=== PATIENT | female | born 1980 | race Caucasian/White ===

== ENCOUNTER → 2017-12-24 08:06 | Outpatient (CLI) | payer OTHER, SELFPAY ==
[2017-12-24 09:43] LABS: AST(SGOT) 28 U/L (15-37); Alanine Aminotransfer ALT/SGPT 47 U/L (13-56); Albumin, Serum 3.6 g/dL (3.2-5.0); Alkaline Phosphatase 51 U/L (45-117); Bilirubin, Direct 0.08 mg/dL (0.00-0.30); Cholesterol 252 mg/dL (200); Globulin 3.8 g/dL (2.2-4.2); High Density Lipoprotein 37 mg/dL; Protein, Total 7.4 g/dL (6.4-8.2); Triglycerides 270 mg/dL; Very Low Density Lipoprotein 54 mg/dL (5-40)
== END ==
PROVIDERS: Family Provider Family Medicine; Visit Provider Internal Medicine Cardiovascular Disease
DX: E78.5 Hyperlipidemia, unspecified (principal); I77.810 Thoracic aortic ectasia
CPT/HCPCS: 36415; 80061; 80076

== ENCOUNTER → 2018-01-07 13:39 | Outpatient (CLI) | payer OTHER, SELFPAY ==
--- NOTE | 2018-01-07 13:39 | ECHOD_ITS ---
Reason For Study: Preop, Dilated Ao Root, AI Procedure This was a 2D Doppler, Color Flow transthoracic echocardiogram. Exam performed in department. Left Ventricle Normal size and thickness. The estimated ejection fraction is 65 %. Normal diastology for age. No regional wall motion abnormalities noted. Right Ventricle Normal size and thickness. Normal systolic function. Atria Normal left atrium. Normal right atrium. Normal atrial septum. Mitral Valve The mitral valve is structurally normal. No prolapse or stenosis seen. Tricuspid Valve Normal tricuspid valve. Unable to estimate RV systolic pressure/pulmonary artery pressure due to technically difficult study. Aortic Valve Trisinus/trileaflet aortic valve. Mild diffuse aortic valve thickening. Trivial aortic valve insufficiency. Pulmonic Valve The pulmonic valve is not well visualized. Great Vessels Mildly dilated aortic root. Normal arch. Normal inferior vena cava. Inferior vena cava collapse with sniff. Pericardium/Pleural No pericardial effusion. MMode/2D Measurements & Calculations LVIDd: 4.9 cm IVSd: 1.1 cm Ao root diam: 4.3 cm LVIDs: 3.0 cm LVPWd: 0.89 cm LA dimension: 3.4 cm RVDd: 3.2 cm FS: 38.4 % LAV(MOD-bp): 36.8 ml LA A4 area: 13.0 cm2 RA A4 area: 12.0 cm2 LAV(MOD-bp) Indexed: 18.8 ml/m2 LAV(MOD-sp2): 40.5 ml LAV(MOD-sp4): 33.3 ml Doppler Measurements & Calculations MV E max jhony: 71.7 cm/sec Lat Peak E' Jhony: 8.9 cm/sec Med Peak E' Jhony: 6.3 cm/sec MV A max jhony: 74.1 cm/sec E/E' lat: 8.0 E/E' med: 11.4 MV E/A: 0.97 Ao V2 max: 174.5 cm/sec AI max jhony: 401.6 cm/sec LV V1 max: 125.3 cm/sec Ao max P.2 mmHg AI max P.5 mmHg LV V1 max P.3 mmHg Ao V2 mean: 132.9 cm/sec AI dec slope: 204.1 cm/sec2 Ao mean P.7 mmHg AI P1/2t: 576.3 msec Ao V2 VTI: 34.0 cm PA V2 max: 104.1 cm/sec Interpretation Summary The estimated ejection fraction is 65 %. Normal diastology for age. Unable to estimate RV systolic pressure/pulmonary artery pressure due to technically difficult study. Trivial aortic valve insufficiency. Mildly dilated aortic root. There is no comparison study available. Ordering Physician: Riley Galicia Referring Physician: Kary Toney Performed By: Gladys Neal RDCS, RVT
--- NOTE | 2018-01-07 13:39 | CT_ITS ---
STUDY: CT CHEST WITH CONTRAST REASON FOR EXAM: Female, 37 years old. Thoracic aortic aneurysm RADIATION DOSAGE (If Supplied By Facility): CTDIvol = ( 14.1 ) mGy, DLP = ( 610.98 ) mGycm TECHNIQUE: Transaxial imaging was performed following intravenous administration of 100 ml of Isovue 300 contrast material. Coronal and sagittal reformatted images were created. Individualized dose optimization techniques were used for this CT. COMPARISON: None FINDINGS: There are no pulmonary infiltrates or pleural effusions. There is no evidence of pulmonary embolus. There is no pneumothorax. The heart and pericardium are within normal limits. There is no thoracic lymphadenopathy. There is a 4.3 x 4.2 cm aneurysm of the [place] ascending aorta. The aortic arch and descending thoracic aorta are normal in caliber. There is no evidence of thoracic aortic dissection. Images through the upper abdomen demonstrate fatty infiltration of the liver. There are no destructive osseous lesions. CT/Chest WITH Contrast IMPRESSION: 4.3 x 4.2 cm aneurysm of the [place]ingo ascending aorta. Normal caliber aortic arch and descending aorta. No evidence of thoracic aortic dissection. No evidence of pulmonary embolus. Clear lungs. Fatty liver. Electronically Signed: Kenyon Marvin, at 16:05 EDT Tel , Service support ,
== END ==
LOC: CVS 13:39
PROVIDERS: Family Provider Family Medicine; Visit Provider Internal Medicine Cardiovascular Disease
DX: I10 Essential (primary) hypertension (principal); E78.5 Hyperlipidemia, unspecified; I35.1 Nonrheumatic aortic (valve) insufficiency; I77.810 Thoracic aortic ectasia
CPT/HCPCS: 71260; 93306; Q9967

== ENCOUNTER → 2018-03-17 15:56 | Outpatient (CLI) | payer OTHER, SELFPAY ==
[2018-03-17 17:22] LABS: hCG Titer Quant., Serum < 1 mIU/mL (<9 non-preg)
[2018-03-18 08:34] LABS: Progesterone Level 0.52 ng/mL (See Comment)
== END ==
PROVIDERS: Visit Provider Obstetrics & Gynecology
DX: Z30.430 Encounter for insertion of intrauterine contraceptive device (principal)
CPT/HCPCS: 36415; 84144; 84702

== ENCOUNTER → 2018-03-21 16:50 | Outpatient (CLI) | payer OTHER, SELFPAY ==
--- NOTE | 2018-03-21 | CER_PTH ---
PATIENT: PETE HUERTA LOC: [facility] U#:[id number] AGE/SX: 45/F ROOM: RE03/21/[address]: Dr. Enoc Rebolledo MD : 1980 BED: DIS: SPEC #: [id number] RECD: 03/22/18 08:04 STATUS: JENNY CRISTIANO #: [id number] RAO: 03/21/18 00:[address]: Enoc Rebolledo DEPT: SURGICAL PATHOLOGY RECD BY: Tristan Zendejas ENTERED: 03/22/18 08:04 SP TYPE: CERV OTHR DR: Kary Toney DO Tissues: Uterine cervix, NOS Procedures: Surgery Specimen Level IV HEADER OPERATION: Removal of cervical polyp PRE-OP DIAGNOSIS: Cervical polyp TISSUE SUBMITTED: Cervical polyp MICROSCOPIC DIAGNOSIS Cervical polyp, polypectomy: Benign cervical polyp, mildly inflamed. AM:lazaro 03/24/18 MICROSCOPIC DESCRIPTION Slides are reviewed. GROSS DESCRIPTION Received in fixative is one container labeled with the patient's name and designated polyp. The specimen consists of a polypoid fragment of pink-coleman soft tissue measuring 2.7 x 1 x 0.3 cm. The specimen has adherent blood clot measuring 1 x 0.2 x 0.1 cm. The specimen is totally submitted in one cassette. / AM:lazaro 03/22/18 TC:1 CPT: 10620
[2018-03-21 18:37] LABS: Chlamydia Trachomatis by PCR Negative (Negative); Neisserai gonorrhoeae by PCR Negative (Negative); Probe Check PASS; Sample Adequacy Control PASS; Specimen Processing Control PASS
== END ==
PROVIDERS: Family Provider Family Medicine; PCP Family Medicine; Visit Provider Obstetrics & Gynecology
DX: N84.1 Polyp of cervix uteri (principal)
CPT/HCPCS: 87491; 87591; 88305

== ENCOUNTER → 2018-04-20 17:24 | Outpatient (CLI) | payer OTHER, SELFPAY ==
[2018-04-25 13:41] LABS: HPV Reflexed? NOT INDICATED
== END ==
PROVIDERS: Family Provider Family Medicine; PCP Family Medicine; Visit Provider Obstetrics & Gynecology
DX: Z12.4 Encounter for screening for malignant neoplasm of cervix (principal)
CPT/HCPCS: 88175; G0145

== ENCOUNTER → 2018-04-22 07:03 | Outpatient (CLI) | payer OTHER, SELFPAY ==
[2018-04-22 09:13] LABS: AST(SGOT) 20 U/L (15-37); Alanine Aminotransfer ALT/SGPT 32 U/L (13-56); Albumin, Serum 3.6 g/dL (3.2-5.0); Alkaline Phosphatase 44 U/L (45-117); Cholesterol 117 mg/dL (200); Globulin 3.8 g/dL (2.2-4.2); High Density Lipoprotein 36 mg/dL; Protein, Total 7.4 g/dL (6.4-8.2); Triglycerides 191 mg/dL; Very Low Density Lipoprotein 38 mg/dL (5-40)
== END ==
PROVIDERS: Family Provider Family Medicine; PCP Family Medicine; Visit Provider Nurse Practitioner Family
DX: E78.5 Hyperlipidemia, unspecified (principal)
CPT/HCPCS: 36415; 80061; 80076

== ENCOUNTER → 2019-01-09 15:55 | Outpatient (CLI) | payer BC, SELFPAY ==
[2018-12-29 15:59] VITALS: BMI 39.2
--- NOTE | 2019-01-09 15:59 | CT_ITS ---
STUDY: CTA CHEST REASON FOR EXAM: Female, 38 years old. History of dilated aortic root RADIATION DOSAGE (If Supplied By Facility): CTDIvol = ( 22.03 ) mGy, DLP = ( 594.52 ) mGycm TECHNIQUE: The examination was performed with the intravenous administration of 100 IV Isovue 370. Post-processing of the angiographic images was performed, with multiplanar reformation and 3D reconstruction. Individualized dose optimization techniques were used for this CT. COMPARISON: Previous CT chest of 01/07/2018 FINDINGS: Normal enhancement of the main pulmonary artery and right and left pulmonary arteries. Normal enhancement of the bilateral peripheral pulmonary arteries. There is no demonstrated pulmonary embolism. The thoracic aorta at the level of the aortic root measures 4.6 cm in diameter. The mid ascending thoracic aorta measures 3.8 cm. The ascending thoracic aorta proximal to the arch measures 4.0 cm. The thoracic aorta at the level of the proximal arch measures 3.7 cm in diameter. The mid thoracic aortic arch measures 2.5 cm in diameter. The descending thoracic aorta is normal in caliber and contour. There is no demonstrated aortic dissection. Normal heart and pericardium. Normal mediastinum. Normal hilar regions. Normal visualized trachea and bronchi. The lungs are well expanded. Normal pulmonary parenchyma. There are several pleural-based nodules of the posterior right lower lobe measuring up to 4 mm. These are new in the interval. Normal chest wall structures. There is mild diffuse endplate spondylosis of the visualized thoracolumbar spine. Normal visualized upper abdomen. CT/CTA Chest W/WO Contrast IMPRESSION: Normal CTA chest examination, without a demonstrated pulmonary embolism or arterial dissection. The ascending thoracic aorta is ectatic. The thoracic aorta at the level of the aortic root measures 4.6 cm in diameter. There are several pleural-based nodules in the posterior right lower lobe measuring up to 4 mm. These are new in the interval. Appropriate follow-up using Fleischner Society criteria is recommended. Mild diffuse endplate spondylosis of the visualized thoracolumbar spine. Electronically Signed: Ky Osuna MD at 19:41 EDT , Service support ,
== END ==
PROVIDERS: Family Provider Family Medicine; PCP Family Medicine; Referring Provider Internal Medicine Cardiovascular Disease; Visit Provider Internal Medicine Cardiovascular Disease
DX: I77.810 Thoracic aortic ectasia (principal); I35.1 Nonrheumatic aortic (valve) insufficiency; I10 Essential (primary) hypertension
CPT/HCPCS: 71275

== ENCOUNTER → 2019-01-13 08:16 | Outpatient (CLI) | payer BC, SELFPAY ==
[2018-12-29 15:59] VITALS: BMI 39.2
--- NOTE | 2019-01-13 08:22 | ECHOCS_ITS ---
Version 2 Reason For Study: Murmur Procedure This was a 2D Doppler, Color Flow transthoracic echocardiogram. Contrast injection was performed. Best images obtained with patient Supine. Exam performed in department. Left Ventricle Normal size and thickness. The estimated ejection fraction is 65 %. Normal diastology for age. No regional wall motion abnormalities noted. Right Ventricle Normal size and thickness. Normal systolic function. Atria Normal left atrium. Normal right atrium. Normal atrial septum. Mitral Valve The mitral valve is structurally normal. No prolapse or stenosis seen. Tricuspid Valve Normal tricuspid valve. Unable to estimate RV systolic pressure due to inadequate jet, pulmonary artery pressure probably normal. Aortic Valve Trisinus/trileaflet aortic valve. Mild diffuse aortic valve thickening. Mild (1+) aortic valve insufficiency. Pulmonic Valve Normal pulmonic valve. Great Vessels Moderately dilated aortic root. Normal arch. Normal inferior vena cava. Inferior vena cava collapse with sniff. Pericardium/Pleural No pericardial effusion. Medication 22 gauge I.V. with prn adaptor inserted into right arm. Diluted definity 1.5ml given slow IV push to enhance endocardial definition. MMode/2D Measurements & Calculations LVIDd: 4.9 cm IVSd: 0.84 cm Ao root diam: 4.8 cm LVIDs: 2.9 cm LVPWd: 0.87 cm FS: 40.0 % LAV(MOD-bp): 32.8 ml LA A4 area: 14.7 cm2 RA A4 area: 12.4 cm2 LAV(MOD-bp) Indexed: 16.9 ml/m2 LAV(MOD-sp2): 27.7 ml LAV(MOD-sp4): 38.6 ml Time Measurements MV dec time: 0.23 sec Doppler Measurements & Calculations MV E max jhony: 87.4 cm/sec Lat Peak E' Jhony: 13.5 cm/sec Med Peak E' Jhony: 10.2 cm/sec MV A max jhony: 77.1 cm/sec E/E' lat: 6.5 E/E' med: 8.6 MV E/A: 1.1 MV V2 max: 101.2 cm/sec MV P1/2t max jhony: 102.7 cm/sec Ao V2 max: 167.8 cm/sec MV max P.1 mmHg MV P1/2t: 58.0 msec Ao max P.3 mmHg MV V2 mean: 59.6 cm/sec MV dec slope: 518.8 cm/sec2 Ao V2 mean: 107.5 cm/sec MV mean P.7 mmHg Ao mean P.3 mmHg MV V2 VTI: 25.1 cm MVA(P1/2t): 3.8 cm2 Ao V2 VTI: 31.7 cm LV V1 max: 108.8 cm/sec PA V2 max: 125.8 cm/sec LV V1 max P.7 mmHg LV V1 mean P.1 mmHg LV V1 mean: 66.8 cm/sec LV V1 VTI: 22.5 cm Interpretation Summary The estimated ejection fraction is 65 %. Normal diastology for age. Unable to estimate RV systolic pressure due to inadequate jet, pulmonary artery pressure probably normal. Mild (1+) aortic valve insufficiency. Moderately dilated aortic root. Compared to echo report dated 01/11/2018, LV function has remained the same, but ascending root has gone from 4.3 to 4.8 cm. The study was technically difficult. Contrast injection was performed. Ordering Physician: Riley Galicia Referring Physician: Riley Galicia Performed By: Howard Nolasco RCS
[2019-01-13 10:09] LABS: ALB/GLOB Ratio 1.1 RATIO (0.9-2.4); AST(SGOT) 17 U/L (15-37); Alanine Aminotransfer ALT/SGPT 23 U/L (13-56); Albumin, Serum 3.6 g/dL (3.2-5.0); Alkaline Phosphatase 50 U/L (45-117); Anion Gap 7 (5-15); BUN 12 mg/dL (7-18); BUN/Creat Ratio 15.5 RATIO (10-20); Calcium,Total 8.6 mg/dL (8.5-10.1); Chloride 107 mmol/L (98-107); Cholesterol 148 mg/dL (200); Creatinine, Serum 0.78 mg/dL (0.55-1.02); EST Glomerular Filtration Rate 88 mL/min (>60); Est Glom Filt Rate - Afr Amer 107 mL/min (>60); Globulin 3.4 g/dL (2.2-4.2); Glucose 89 mg/dL (74-106); High Density Lipoprotein 36 mg/dL; Potassium 3.4 mmol/L (3.5-5.1); Sodium Level 140 mmol/L (136-145); Triglycerides 235 mg/dL; Very Low Density Lipoprotein 47 mg/dL (5-40)
== END ==
PROVIDERS: Referring Provider Internal Medicine Cardiovascular Disease; Visit Provider Internal Medicine Cardiovascular Disease
DX: I10 Essential (primary) hypertension (principal); I35.1 Nonrheumatic aortic (valve) insufficiency; I77.810 Thoracic aortic ectasia
CPT/HCPCS: 36415; 80053; 80061; 82248; 93306; Q9957; A4216; C8929

== ENCOUNTER → 2019-02-14 13:19 | Outpatient (CLI) | payer BC, SELFPAY ==
[2019-01-19 13:25] VITALS: BMI 39.4
--- NOTE | 2019-02-14 15:49 | PFTCOMP ---
COMPLETE PULMONARY FUNCTION TEST INTERPRETATION Brief HPI: Patient is a 38 year old female, currently under the care of myself, who presents to [facility] for complete pulmonary function tests secondary to diagnosis of cough. Respiratory therapist reports good effort and reproducible results. Interpretation: Forced expiration spirometry shows no large airways obstructive ventilatory defect with an FEV1 of 102% predicted. There is no significant bronchodilator response by strict ATS criteria. Spirograms are of good quality and plateau normally. The respiratory flow volume loop shows a normal pattern. Lung volumes by body plethysmography show a normal total lung capacity at 4.14 L, 89% predicted. All other lung volumes are within normal limits. Diffusion capacity by carbon monoxide is decreased at 67% predicted. The airway resistance is normal. No previous pulmonary function tests were available for review. Impression: Isolated reduction in diffusing capacity consistent with a possible pulmonary vascular disorder.
--- NOTE | 2019-02-14 15:52 | PFTCOMP_ITS ---
COMPLETE PULMONARY FUNCTION TEST INTERPRETATION Brief HPI: Patient is a 38 year old female, currently under the care of myself, who presents to [facility] for complete pulmonary function tests secondary to diagnosis of cough. Respiratory therapist reports good effort and reproducible results. Interpretation: Forced expiration spirometry shows no large airways obstructive ventilatory defect with an FEV1 of 102% predicted. There is no significant bronchodilator response by strict ATS criteria. Spirograms are of good quality and plateau normally. The respiratory flow volume loop shows a normal pattern. Lung volumes by body plethysmography show a normal total lung capacity at 4.14 L, 89% predicted. All other lung volumes are within normal limits. Diffusion capacity by carbon monoxide is decreased at 67% predicted. The airway resistance is normal. No previous pulmonary function tests were available for review. Impression: Isolated reduction in diffusing capacity consistent with a possible pulmonary vascular disorder.
== END ==
PROVIDERS: Family Provider Family Medicine; PCP Family Medicine; Referring Provider Internal Medicine Critical Care Medicine; Visit Provider Internal Medicine Critical Care Medicine
DX: R05 Cough (principal)
CPT/HCPCS: 94060; 94726; 94729

== ENCOUNTER → 2019-02-28 11:10 | Outpatient (CLI) | payer BC, SELFPAY ==
[2019-01-19 13:25] VITALS: BMI 39.4
== END ==
PROVIDERS: Family Provider Family Medicine; PCP Family Medicine; Referring Provider Nurse Practitioner Acute Care; Visit Provider Nurse Practitioner Acute Care
DX: G47.10 Hypersomnia, unspecified (principal)
CPT/HCPCS: 95806

== ENCOUNTER → 2019-03-20 12:51 | Outpatient (CLI) | payer BC, SELFPAY ==
[2019-01-19 13:25] VITALS: BMI 39.4
== END ==
PROVIDERS: Family Provider Family Medicine; PCP Family Medicine; Referring Provider Nurse Practitioner Acute Care; Visit Provider Nurse Practitioner Acute Care
DX: Z01.89 Encounter for other specified special examinations (principal)

== ENCOUNTER → 2019-05-17 18:40 | Outpatient (CLI) | payer BC, SELFPAY ==
[2019-05-16 14:07] VITALS: BMI 38.9
[2019-05-26 11:57] LABS: HPV APTIMA, High Risk Positive (Negative)
[2019-05-26 12:04] LABS: HPV Reflexed? YES, CHARGE PATIENT
== END ==
PROVIDERS: Family Provider Family Medicine; PCP Family Medicine; Referring Provider Obstetrics & Gynecology; Visit Provider Obstetrics & Gynecology
DX: Z12.4 Encounter for screening for malignant neoplasm of cervix (principal)
CPT/HCPCS: 87624; 88175; G0145

== ENCOUNTER → 2019-06-16 16:25 | Outpatient (CLI) | payer BC, SELFPAY ==
[2019-05-16 14:07] VITALS: BMI 38.9
--- NOTE | 2019-06-16 | IMM_PTH ---
PATIENT: PETE HUERTA LOC: [facility] U#:[id number] AGE/SX: 45/F ROOM: RE06/16/[address]: Dr. Enoc Rebolledo MD : 1980 BED: DIS: SPEC #: [id number] RECD: 06/20/19 12:33 STATUS: JENNY REQ #: [id number] RAO: 06/16/19 00:[address]: Enoc Rebolledo DEPT: IMMUNOHISTOCHEMISTRY RECD BY: Shelbie Crabtree ENTERED: 06/20/19 12:34 SP TYPE: IMMUNO OTHR DR: Dr. Kary Funes, DO Tissues: A - Uterine cervix, NOS Procedures: p16 (initial) KI-67 (add) PHYSICIAN & INSTITUTION [place] [id number] SPECIMEN INFORMATION: Tissue Source: A - Four-quad cervical biopsy Clinical Info: LGSIL Specimen Number: [id number] CPT code: 12119, 51542 METHODOLOGY: Deparaffinized sections of prefer/formalin-fixed tissue or PAP/DQ stained slides are incubated with monoclonal/polyclonal antibodies/oligonucleotide probes. Localization is made via biotin free immunoperoxidase method. Appropriate controls are performed and reacted as expected. Results on target cell population are indicated in the following table: RESULTS: ANTIBODY / CLONE RESULT Block A P16 (E6H4) positive, patchy staining Ki-67 (30-9) positive, low These tests were developed and their performance characteristics determined by [facility]. They may not have been cleared or approved by the U.S. Food and Drug Administration. The FDA has determined that such clearance or approval is not necessary. The above immunohistochemical/dualISH markers are ordered and reviewed by the pathologist. INTERPRETATION: A. Four-quad cervical biopsy: Mild squamous dysplasia. KI:lazaro 06/21/19
--- NOTE | 2019-06-16 14:00 | CER_PTH ---
PATIENT: PETE HUERTA LOC: [facility] U#:[id number] AGE/SX: 45/F ROOM: RE06/16/[address]: Dr. Enoc Rebolledo MD : 1980 BED: DIS: SPEC #: [id number] RECD: 06/16/19 16:10 STATUS: JENNY CRISTIANO #: [id number] RAO: 06/16/19 14:[address]: Enoc Rebolledo DEPT: SURGICAL PATHOLOGY RECD BY: Bal Garcia ENTERED: 06/19/19 11:32 SP TYPE: CERV OTHR DR: Dr. Kary Funes, DO Tissues: A - Uterine cervix, NOS B - Endocervical Procedures: Surgery Specimen Level IV HEADER OPERATION: Colposcopy PRE-OP DIAGNOSIS: LGSIL R87.612 TISSUE SUBMITTED: A - Four-quad cervical biopsy, B - ECC MICROSCOPIC DIAGNOSIS A. 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 Moderate to marked chronic inflammation and mild acute inflammation. See comment. B. ECC: Fragments of benign ecto- and endocervical epithelium and benign endocervical mucosa with acute and chronic inflammation, blood and mucous. Negative for dysplasia. KI:lazaro 06/20/19 COMMENT A. Immunohistochemistry ([id number]) for surrogate HPV marker (p16) supports the above diagnosis. MICROSCOPIC DESCRIPTION Slides are reviewed. GROSS DESCRIPTION A - Received in fixative is one container labeled with the patient's name and designated four-quad cervical biopsy. The specimen consists of multiple irregular fragments of light coleman soft tissue that in aggregate measure 0.7 x 0.5 x 0.1 cm. The specimen is totally submitted in one cassette. B - Received in fixative is one container labeled with the patient's name and designated ECC. The specimen consists of reddish-coleman mucoid material aggregating to 1 x 1 x 0.1 cm. The specimen is totally submitted in one cassette. / AM:lazaro 06/19/19 TC:5 CPT: 62470 x2
== END ==
PROVIDERS: Family Provider Family Medicine; PCP Family Medicine; Referring Provider Obstetrics & Gynecology; Visit Provider Obstetrics & Gynecology
DX: R87.612 Low grade squamous intraepithelial lesion on cytologic smear of cervix (LGSIL) (principal)
CPT/HCPCS: 88305; 88341; 88342

== ENCOUNTER → 2019-11-03 07:43 | Outpatient (CLI) | payer BC, SELFPAY ==
[2019-05-16 14:07] VITALS: BMI 38.9
[2019-07-04 15:58] VITALS: BMI 38.7
--- NOTE | 2019-11-03 12:51 | PFT ---
INTRODUCTION: The patient is a 39-year-old female that presents for pulmonary function studies secondary to a diagnosis of abnormal PFT. Respiratory therapy reports good patient effort. Bronchodilators were used during testing. INTERPRETATION: Forced expiration spirometry demonstrates no evidence of a large airways obstructive ventilatory defect. There was no significant response to aerosolized bronchodilators, based upon strict ATS criteria. Spirograms are of good quality and plateau normally. Body plethysmography was performed and reveals lung volumes to be within normal limits. Diffusing capacity by single breath CO is reduced to 62% of predicted. IMPRESSION: Isolated mild reduction in diffusing capacity. When compared to previous pulmonary function studies, there has been improvement in the patient's TLC with a slight decrease in diffusing capacity.
== END ==
PROVIDERS: Family Provider Family Medicine; PCP Family Medicine; Referring Provider Internal Medicine Critical Care Medicine; Visit Provider Internal Medicine Critical Care Medicine
DX: R94.2 Abnormal results of pulmonary function studies (principal)
CPT/HCPCS: 94060; 94726; 94729

== ENCOUNTER → 2020-02-14 07:42 | Outpatient (CLI) | payer BC, SELFPAY ==
[2020-01-02 11:29] VITALS: BMI 39.2
--- NOTE | 2020-02-14 07:43 | ECHOD_ITS ---
Reason For Study: VALVE REPLACEMENT EVAL Procedure This was a 2D Doppler, Color Flow transthoracic echocardiogram. Exam performed in department. Left Ventricle Mildly dilated left ventricle. The estimated ejection fraction is 65 %. Normal diastology for age. No regional wall motion abnormalities noted. Right Ventricle Mildly dilated right ventricle. Normal systolic function. Atria Normal left atrium. Normal right atrium. Normal atrial septum. Mitral Valve The mitral valve is structurally normal. No prolapse or stenosis seen. Tricuspid Valve Normal tricuspid valve. Unable to estimate RV systolic pressure due to insufficient tricuspid regurgitant envelope. Aortic Valve Trisinus/trileaflet aortic valve. Mild (1+) aortic valve insufficiency. Pulmonic Valve Normal pulmonic valve. Great Vessels Moderately dilated aortic root. Aortic root diameter 4.4 cm. Normal arch. Normal inferior vena cava. Inferior vena cava collapse with sniff. Pericardium/Pleural No pericardial effusion. MMode/2D Measurements & Calculations LVIDd: 5.0 cm IVSd: 0.94 cm LVOT diam: 2.0 cm LVIDs: 3.4 cm LVPWd: 0.83 cm LVOT area: 3.1 cm2 RVDd: 3.8 cm FS: 32.3 % MVA(traced): 13.7 cm2 Ao root diam: 4.4 cm LAV(MOD-bp): 50.1 ml LAV(MOD-bp) Indexed: 25.8 ml/m2 LAV(MOD-sp2): 55.4 ml LAV(MOD-sp4): 42.7 ml LA dimension(2D): 4.3 cm LA A4 area: 15.8 cm2 Time Measurements MV dec time: 0.15 sec Doppler Measurements & Calculations MV E max jhony: 86.4 cm/sec Lat Peak E' Jhony: 8.8 cm/sec Med Peak E' Jhony: 7.0 cm/sec MV A max jhony: 60.0 cm/sec E/E' lat: 9.8 E/E' med: 12.4 MV E/A: 1.4 Ao V2 max: 159.0 cm/sec AI max jhony: 361.6 cm/sec LV V1 max: 116.6 cm/sec Ao max P.1 mmHg AI max P.4 mmHg LV V1 max P.4 mmHg Ao V2 mean: 117.2 cm/sec AI dec slope: 189.6 cm/sec2 LV V1 mean P.3 mmHg Ao mean P.0 mmHg AI P1/2t: 558.4 msec LV V1 mean: 86.9 cm/sec Ao V2 VTI: 35.1 cm LV V1 VTI: 26.7 cm BRENT(I,D): 2.4 cm2 BRENT(V,D): 2.3 cm2 SV(LVOT): 83.6 ml PA V2 max: 95.6 cm/sec Interpretation Summary Mildly dilated left ventricle. The estimated ejection fraction is 65 %. Normal diastology for age. Mildly dilated right ventricle. Unable to estimate RV systolic pressure due to insufficient tricuspid regurgitant envelope. Mild (1+) aortic valve insufficiency. Moderately dilated aortic root. Aortic root diameter 4.4 cm. Compared to echo report dated 01/13/2019, LV function has remained the same, and aortic root has improved from 4.8 to 4.4 cm. Ordering Physician: Riley Galicia Referring Physician: Kary Funes Performed By: Sushma Borjas RDCS, RVT
== END ==
PROVIDERS: PCP Family Medicine; Referring Provider Internal Medicine Cardiovascular Disease; Visit Provider Internal Medicine Cardiovascular Disease
DX: I71.2 Thoracic aortic aneurysm, without rupture (principal); I35.1 Nonrheumatic aortic (valve) insufficiency; E66.9 Obesity, unspecified
CPT/HCPCS: 93306

== ENCOUNTER → 2020-04-03 08:16 | Outpatient (CLI) | payer BC, SELFPAY ==
[2020-01-02 11:29] VITALS: BMI 39.2
[2020-04-03 10:10] LABS: AST(SGOT) 20 U/L (15-37); Alanine Aminotransfer ALT/SGPT 43 U/L (13-56); Albumin, Serum 3.9 g/dL (3.2-5.0); Alkaline Phosphatase 42 U/L (45-117); Bilirubin, Direct 0.13 mg/dL (0.00-0.30); Cholesterol 133 mg/dL (200); Globulin 3.6 g/dL (2.2-4.2); High Density Lipoprotein 39 mg/dL; Protein, Total 7.5 g/dL (6.4-8.2); Triglycerides 116 mg/dL; Very Low Density Lipoprotein 23 mg/dL (5-40)
== END ==
PROVIDERS: PCP Family Medicine; Referring Provider Internal Medicine Cardiovascular Disease; Visit Provider Internal Medicine Cardiovascular Disease
DX: E78.00 Pure hypercholesterolemia, unspecified (principal)
CPT/HCPCS: 36415; 80061; 80076

== ENCOUNTER → 2020-06-19 | Outpatient (CLI) | payer BC, SELFPAY ==
[2020-04-29 08:34] VITALS: BMI 39.2
[2020-06-22 03:07] LABS: Chlamydia By Nucleic Acid AMP Negative (Negative)
[2020-06-22 05:50] LABS: Gonococcus By Nucleic Acid AMP Negative (Negative)
[2020-06-25 09:19] LABS: HPV APTIMA, High Risk Negative (Negative); HPV Reflexed? YES, CHARGE PATIENT
== END | disposition home or self-care (01) ==
LOC: LABSPEC 11:07
PROVIDERS: PCP Family Medicine; Visit Provider Obstetrics & Gynecology
DX: Z12.4 Encounter for screening for malignant neoplasm of cervix (principal); Z11.3 Encounter for screening for infections with a predominantly sexual mode of transmission
CPT/HCPCS: 87491; 87591; 87624; 88175; G0145

== ENCOUNTER → 2020-07-09 07:52 | Outpatient (CLI) | payer BC, SELFPAY ==
[2020-07-01 15:30] VITALS: BMI 40.8
--- NOTE | 2020-07-09 07:53 | CT_ITS ---
STUDY: CT CHEST WITH CONTRAST REASON FOR EXAM: Female, 40 years old. ASCENDING AORTIC ROOT ANEURYSM YEARLY F/U, NON SMOKER, HX-HTN RADIATION DOSAGE (If Supplied By Facility): CTDIvol = ( 15.13 ) mGy, DLP = ( 608.30 ) mGycm TECHNIQUE: Transaxial imaging was performed following intravenous administration of IV 100ML ISOVUE 300. Multiplanar coronal and sagittal images were reformatted. Individualized dose optimization techniques were used for this CT. COMPARISON: Comparison is made with prior study dated 01/09/2019. FINDINGS: The lungs are normal. There is no demonstrated pleural abnormality. Normal heart and pericardium. Normal mediastinum. Normal hilar regions. Normal enhanced pulmonary arteries. Stable dilatation of the aortic root with a transverse dimension of 4.2 cm. The aortic arch and descending thoracic aorta are unremarkable. There are mild degenerative changes of the thoracic spine. Fatty infiltration of the liver. Small hiatal hernia. CT/Chest WITH Contrast IMPRESSION: Stable examination. Electronically Signed: Haresh Yuan, at 13:01 EDT , Service support ,
== END ==
PROVIDERS: PCP Family Medicine; Referring Provider Physician Assistant Medical; Visit Provider Physician Assistant Medical
DX: I71.2 Thoracic aortic aneurysm, without rupture (principal); I35.1 Nonrheumatic aortic (valve) insufficiency; G47.33 Obstructive sleep apnea (adult) (pediatric)
CPT/HCPCS: 71260; Q9967

== ENCOUNTER → 2020-10-09 06:56 | Outpatient (CLI) | payer BC, SELFPAY ==
[2020-04-29 08:34] VITALS: BMI 39.2
[2020-07-01 15:30] VITALS: BMI 40.8
--- NOTE | 2020-10-09 09:51 | PFTCOMP ---
COMPLETE PULMONARY FUNCTION TEST INTERPRETATION Brief HPI: Patient is a 40 year old female, currently under the care of myself, who presents to [facility] for complete pulmonary function tests secondary to diagnosis of dyspnea. Respiratory therapist reports good effort and reproducible results. Interpretation: Forced expiration spirometry shows no large airways obstructive ventilatory defect with an FEV1 of 115% predicted. There is no significant bronchodilator response by strict ATS criteria. Spirograms are of good quality and plateau normally. The respiratory flow volume loop shows a normal pattern. Lung volumes by body plethysmography show a normal total lung capacity at 4.73 L, 102% predicted. All other lung volumes are within normal limits. Diffusion capacity by carbon monoxide is at the lower limit of normal at 71% predicted. The airway resistance is normal. Compared to previous pulmonary function tests from 11/03/2019, there has been improvement in FVC, FEV1 and DLCO by 11%, 10% and 17% respectively. Impression: Relative normalization of PFT compared to previous testing in 2020. DLCO remains at the lower limit of normal may indicate an early pulmonary vascular disease.
== END ==
PROVIDERS: PCP Family Medicine; Referring Provider Internal Medicine Critical Care Medicine; Visit Provider Internal Medicine Critical Care Medicine
DX: R94.2 Abnormal results of pulmonary function studies (principal)
CPT/HCPCS: 94060; 94726; 94729

== ENCOUNTER → 2020-10-26 07:54 | Outpatient (CLI) | payer BC, SELFPAY ==
[2020-10-09 09:54] VITALS: BMI 39.2
[2020-10-16 06:47] VITALS: BMI 40.0
--- NOTE | 2020-10-26 07:57 | CT_ITS ---
STUDY: CT MAXILLOFACIAL SINUSES REASON FOR EXAM: Female, 40 years old. Sinusitis x years, right sided pain, headaches. Hx hypertension. RADIATION DOSAGE (If Supplied By Facility): CTDIvol = ( 29.38 ) mGy, DLP = ( 488.69 ) mGycm TECHNIQUE: The patient was scanned in a multi detector CT scanner. High resolution axial imaging was performed without the administration of intravenous contrast material. Sagittal and coronal images were reconstructed. Individualized dose optimization techniques were used for this CT. COMPARISON: None. FINDINGS: FRONTAL SINUSES: Normal aeration, without mucosal inflammatory disease. ETHMOIDAL SINUSES: Normal aeration, without mucosal inflammatory disease. MAXILLARY SINUSES: Normal aeration, without mucosal inflammatory disease. SPHENOIDAL SINUSES: Normal aeration, without mucosal inflammatory disease. There is patency of the bilateral maxillary infundibuli with normal uncinate processes, ethmoid bullae, and hiatus semilunaris. Normal bilateral middle turbinates. Normal bilateral inferior turbinates. Normal midline nasal septum. There is patency of the bilateral nasal airways. The visualized osseous structures are normal. The visualized bilateral orbital contents are normal. Rounded density in the left external auditory canal could represent cerumen. CT/Sinus/Facial Bone IMPRESSION: 1. Normal CT examination of the maxillofacial sinuses. 2. Probable cerumen in the left external auditory canal. Electronically Signed: Steven Mcginnis MD ([place]) at 14:53 EST , Service support ,
== END ==
PROVIDERS: PCP Family Medicine; Referring Provider Otolaryngology Otolaryngology/Facial Plastic Surgery; Visit Provider Otolaryngology Otolaryngology/Facial Plastic Surgery
DX: J32.8 Other chronic sinusitis (principal)
CPT/HCPCS: 70486

== ENCOUNTER 2021-04-15 12:43 | Emergency (ER) | payer BC, SELFPAY ==
[2021-04-07 15:25] VITALS: BMI 38.5
[2021-04-15 12:45] VITALS: BP 164/91; PULSE 80; RESP 6; TEMP 36.6; O2SAT 98; BMI 38.4
--- NOTE | 2021-04-15 13:30 | CT_ITS ---
STUDY: CTA HEAD AND NECK WITH CONTRAST REASON FOR EXAM: Female, 41 years old. Sagittal onset of headaches. Hypertension. RADIATION DOSAGE (If Supplied By Facility): CTDIvol = ( 26.81 ) mGy, DLP = ( 1434.55 ) mGycm TECHNIQUE: CT angiography was performed with a multi-detector CT scanner. Data acquisition was obtained from the skull base through the vertex following intravenous administration of IV 100mL Isovue-370. MIP images were reconstructed from the axial data set. Post-processing of the angiographic images was performed, with multiplanar reformation and 3D reconstruction. Individualized dose optimization techniques were used for this CT. COMPARISON: No relevant priors. FINDINGS: Normal bilateral petrous carotid arteries. Normal right cavernous carotid artery with a normal supraclinoid bifurcation. Normal left cavernous carotid artery with a normal supraclinoid bifurcation. Normal right A1 segments of the anterior cerebral artery. Normal left A1 segments of the anterior cerebral artery. Normal intact anterior communicating artery (ACOM). Normal bilateral A2 segments of the anterior cerebral arteries. Normal right M1 and M2 segments of the middle cerebral arteries, with a normal M1 bifurcation. Normal left M1 and M2 segments of the middle cerebral arteries, with a normal M1 bifurcation. Normal right posterior communicating artery (PCOM). Normal left posterior communicating artery (PCOM). Normal bilateral vertebral arteries. Normal basilar artery with a normal basilar bifurcation. The visualized bilateral superior cerebellar (SCA) arteries are normal. Normal bilateral P1, P2 and visualized P3 segments of the posterior cerebral arteries. There is no demonstrated aneurysm of the [place]. There is 11.6 mm x 8.1 mm extra-axial bony density overlying the right frontal lobe. This may represent a small meningioma. AORTIC ARCH: Normal visualized aortic arch. Normal origins of the brachiocephalic, left common carotid, and left subclavian arteries. RIGHT CAROTID ARTERIES: Normal right common carotid artery (CCA). Normal right common carotid bulb. Normal origin of the right internal carotid (ICA) artery without a hemodynamically significant stenosis. Normal visualized cervical portion of the right internal carotid artery. Normal origin of the right external carotid artery (ECA). LEFT CAROTID ARTERIES: Normal left common carotid artery (CCA). Normal left common carotid bulb. Normal origin of the left internal carotid (ICA) artery without a hemodynamically significant stenosis. Normal visualized cervical portion of the left internal carotid artery. Normal origin of the left external carotid artery (ECA). VERTEBRAL ARTERIES: Normal bilateral vertebral arteries. CT/CTA Head AND Neck W/ Contrast IMPRESSION: Findings suggest of 11.6 mm x 8.1 mm calcified meningioma overlying the right frontal lobe. Electronically Signed: Haresh Yuan MD at 14:49 EDT , Service support ,
[2021-04-15 13:52] LABS: Absolute Neutrophil Count 6.8 X10^3/uL (2.0-7.7); Basophil# 0.06 X10^3/uL; Basophil% 0.7 % (0-1); Eosinophil# 0.04 X10^3/uL; Eosinophils% 0.5 % (0-5); Hematocrit 43.4 % (37-47); Hemoglobin 14.7 g/dL (12.0-15.0); Lymphocyte % 16.1 % (19-41); Mean Corp Hgb Conc 33.9 g/dL (32-36); Mean Corpuscular Hgb 29.8 pg (27.0-32.0); Mean Platelet Vol. 10.6 fl (6.2-12.0); Monocyte# 0.39 X10^3/uL; Monocyte% 4.5 % (0-10); NRBC Flagged by Analyzer 0 % (0-5); Neutrophil # 6.75 X10^3/uL (2.7-7.7); Neutrophil % 77.7 % (47-70); Platelet Count 261 K/mm3 (150-450); RBC Distribution Width CV 12.7 % (11.6-14.6); RBC Distribution Width SD 41.2 fl (35.1-43.9); Red Blood Count 4.93 M/mm3 (4.2-5.4); White Blood Count 8.7 K/mm3 (4.4-11.0)
[2021-04-15] MEDS: DiphenhydrAMINE 50 MG/ML Syringe 25 MG IV (13:54)
[2021-04-15] MEDS: Metoclopramide 10 MG/2 ML Vial IV (13:55)
[2021-04-15 14:01] VITALS: BP 137/90
[2021-04-15 14:04] LABS: ALB/GLOB Ratio 1.1 RATIO (0.9-2.4); AST(SGOT) 19 U/L (15-37); Alanine Aminotransfer ALT/SGPT 37 U/L (13-56); Albumin, Serum 3.9 g/dL (3.2-5.0); Alkaline Phosphatase 46 U/L (45-117); Anion Gap 5 (5-15); BUN 12 mg/dL (7-18); BUN/Creat Ratio 18.8 RATIO (10-20); Chloride 103 mmol/L (98-107); Creatinine, Serum 0.64 mg/dL (0.55-1.02); EST Glomerular Filtration Rate 109 mL/min (>60); Est Glom Filt Rate - Afr Amer 132 mL/min (>60); Estimated Creatinine Clearance 91.49 ml/min; Globulin 3.5 g/dL (2.2-4.2); Glucose 109 mg/dL (74-106); Potassium 3.6 mmol/L (3.5-5.1); Protein, Total 7.4 g/dL (6.4-8.2); Sodium Level 136 mmol/L (136-145)
--- NOTE | 2021-04-15 16:19 | EDS_ITS ---
HPI History of Present Illness Chief Complaint: Hypertension Informant: patient Onset/Context/Timing Onset: Today Context: Sudden Onset Timing: Continuous Quality - All: sharp Location: Left frontal Worsened by: Movement, laughing Relieved by: Nothing Narrative Narrative: Patient presents with headache and elevated blood pressure that began today. Patient states her headache began rather suddenly. Patient states she took her dog for a walk and then came home. Patient states she sat down and ate breakfast. Patient states her headache began while she was at rest. Patient describes her pain is sharp. Patient states it is localized over the left frontal area. Patient states it is worse with laughing and with movement. Patient checked her blood pressure at home and noted it was elevated at 177/109. Patient states she waited a few minutes and then rechecked it. Patient states it was 169/103. Patient states she called her primary care physician's office and was told to come to the emergency department. [facility] Medical History Essential hypertension Excessive daytime sleepiness Hyperlipidemia Nonrheumatic aortic valve insufficiency Obesity Thoracic aortic aneurysm without rupture Home Medications levonorgestrel 20 mcg/24 hours (6 yrs) 52 mg intrauterine device 1 insert INTRAUTERINE ONCE 06/28/18 [History Last Taken Unknown] carvedilol 12.5 mg tablet 12.5 mg PO BID #180 tab 02/04/21 [Rx Last Taken Unknown] hydrochlorothiazide 25 mg tablet 25 mg PO DAILY #30 tab 03/25/21 [Rx Last Taken Unknown] rosuvastatin 10 mg tablet 10 mg PO QDAY #90 tab 03/25/21 [Rx Last Taken Unknown] cetirizine 10 mg tablet 10 mg PO DAILY 04/07/21 [History Last Taken Unknown] Allergy/AdvReac Type Severity Reaction Status Date / Time Penicillins Allergy Rash Verified 04/15/21 14:00 atenolol AdvReac hair loss Verified 04/15/21 14:00 Family History Mother Hypertension Father Hypertension Surgical History [place] teeth extracted Social History Smoking Status: Never smoker second hand exposure: Yes alcohol intake: current alcohol intake frequency: holidays/special occasions only substance use type: does not use caffeine: Yes Type: coffee Number of servings: 4 ROS ROS ED Constitutional Constitutional ED: Denies chills or fever(s) Eyes Eyes: Denies blurry vision or change in vision ENT ENT ED: Denies rhinorrhea or sore throat Cardiovascular Cardiovascular: Denies chest pain or palpitations Respiratory/Chest Respiratory/Chest: Denies cough or dyspnea Gastrointestinal Gastrointestinal: Denies nausea or vomiting Genitourinary Genitourinary ED: Denies dysuria or hematuria Musculoskeletal Musculoskeletal: Denies back pain or neck pain Integumentary Denies abscess or rash Neurologic Neurologic: Reports headache(s); Denies weakness Allergic/Immunologic Allergic/Immunologic ED: Denies mouth swelling or urticaria EXAM Physical Exam Const Vital Signs: 04/15/21 12:45 04/15/21 14:01 Temperature 97.9 F Temperature Source Temporal Pulse Rate 80 Respiratory Rate 6 L Respiratory Effort Normal Non-Labored Respiratory Pattern Normal Blood Pressure 164/91 H 137/90 H Blood Pressure Mean 115 105 Pulse Ox 98 Oxygen Delivery Method Room Air Positive well nourished and well developed General Appearance ED: well developed HEENT Reports normocephalic and moist mucous membranes Negative for temporal artery tenderness Eyes PERRL and EOMs intact bilaterally Neck supple and no JVD Resp normal respiratory effort and clear to auscultation bilaterally Cardio regular rate, regular rhythm and no murmurs GI normal to inspection, nondistended, normoactive bowel sounds and non-tender Palpation: soft Extremity normal to inspection General Extremety ED: Negative for edema or tenderness General Extremity: Negative for edema Neuro oriented x3, CN's II-XII intact bilaterally and no sensory deficits noted [place] Coma Scale: document GCS findings Spontaneous Obeys Commands Oriented 15 Sensorium / Orientation: awake and alert Motor Exam: strength 5/5 throughout Psych mental status grossly normal, thought process normal, cooperative, affect normal, speech normal and activity/motor behavior normal Skin no rashes or lesions noted MDM MDM MDM Narrative Medical decision making narrative: CT scan of the brain was obtained. CTA of the head neck was obtained. There is a small meningioma overlying the right frontal lobe measuring 11.6 mm x 8.1 mm. There is no acute intracranial abnormality. This was interpreted by the radiologist and reviewed by myself. Patient was given IV fluids, Reglan, and Benadryl. Patient states her headache has improved but is still somewhat present. Patient was given a dose of Toradol. CBC and comprehensive metabolic profile were within normal limits. Patient was instructed to rest in a dark quiet room. Patient was instructed to follow-up with her primary care physician for further evaluation of her headaches. Patient understood and was agreeable with the plan. All questions were answered. Lab Data Attestation: I reviewed the patient's lab results. Labs: Laboratory Results - last 24 hr 04/15/21 04/15/21 13:42 13:42 WBC 8.7 RBC 4.93 Hgb 14.7 Hct 43.4 MCV 88.0 MCH 29.8 MCHC 33.9 RDW Std Deviation 41.2 RDW Coeff of Mary 12.7 Plt Count 261 MPV 10.6 Immature Gran % (Auto) 0.500 Neut % (Auto) 77.7 H Lymph % (Auto) 16.1 L [place] % (Auto) 4.5 Eos % (Auto) 0.5 Baso % (Auto) 0.7 Absolute Neuts (auto) 6.8 Absolute Lymphs (auto) 1.40 Nucleated RBC % 0 Sodium 136 Potassium 3.6 Chloride 103 Carbon Dioxide 28.0 Anion Gap 5 BUN 12 Creatinine 0.64 Estim Creat Clear Calc 91.49 Est GFR (MDRD) Af Amer 132 Est GFR (MDRD) Non-Af 109 BUN/Creatinine Ratio 18.8 Glucose 109 H Calcium 9.0 Total Bilirubin 0.50 AST 19 ALT 37 Alkaline Phosphatase 46 Total Protein 7.4 Albumin 3.9 Globulin 3.5 Albumin/Globulin Ratio 1.1 Radiography Diagnostic Testing: Radiology Impression Head/Neck CTA 04/15/21 13:30 IMPRESSION: Findings suggest of 11.6 mm x 8.1 mm calcified meningioma overlying the right frontal lobe. Electronically Signed: Haresh Yuan MD at 14:49 EDT , Service support , Discharge Plan Triage Chief Complaint: Hypertension ED Provider: Darwin Jay Dx/Rx/DC Orders Clinical Impression: Headache Instructions: Understanding Headache Pain, ED Hypertension, To Be Confirmed, ED Pain, Acute, Uncertain Cause Prescriptions: No Action Mirena 20 mcg/24 hr (5 years) intrauterine device 1 insert Intrauterine ONCE RF: 0 cetirizine [Zyrtec] 10 mg tablet 10 mg PO DAILY RF: 0 carvedilol 12.5 mg tablet 12.5 mg PO BID Qty: 180 RF: 3 hydrochlorothiazide 25 mg tablet 25 mg PO DAILY Qty: 30 RF: 11 rosuvastatin [Crestor] 10 mg tablet 10 mg PO QDAY Qty: 90 RF: 3 Primary Care Provider: Kary Funes Referrals: Kary Funes DO [Primary Care Provider] - 5-7 Days Disposition Disposition: Home, Self Care
[2021-04-15 16:22] VITALS: BP 130/85; PULSE 75; RESP 16; O2SAT 97
[2021-04-15] MEDS: Ketorolac 30 MG/ML Syringe IV (16:26)
== END 2021-04-15 16:51 | disposition home or self-care (01) ==
PROVIDERS: Emergency Provider Emergency Medicine; PCP Family Medicine
DX: I10 Essential (primary) hypertension (principal); D32.9 Benign neoplasm of meninges, unspecified; E78.5 Hyperlipidemia, unspecified; I71.2 Thoracic aortic aneurysm, without rupture; Z79.3 Long term (current) use of hormonal contraceptives; Z79.899 Other long term (current) drug therapy
CPT/HCPCS: 70496; 70498; 80053; 85025; 96374; 96375; 99283; J7030; Q9967

== ENCOUNTER → 2021-07-22 08:02 | Outpatient (CLI) | payer BC, SELFPAY ==
[2021-07-22 09:11] LABS: AST(SGOT) 15 U/L (15-37); Alanine Aminotransfer ALT/SGPT 28 U/L (13-56); Albumin, Serum 3.6 g/dL (3.2-5.0); Alkaline Phosphatase 43 U/L (45-117); Cholesterol 131 mg/dL (200); Globulin 3.6 g/dL (2.2-4.2); High Density Lipoprotein 42 mg/dL; Protein, Total 7.2 g/dL (6.4-8.2); Triglycerides 218 mg/dL; Very Low Density Lipoprotein 44 mg/dL (5-40)
== END ==
PROVIDERS: PCP Family Medicine; Referring Provider Internal Medicine Cardiovascular Disease; Visit Provider Internal Medicine Cardiovascular Disease
DX: E78.00 Pure hypercholesterolemia, unspecified (principal)
CPT/HCPCS: 36415; 80061; 80076

== ENCOUNTER → 2021-08-27 15:57 | Outpatient (CLI) | payer BC, SELFPAY ==
[2021-09-02 18:17] LABS: HPV Reflexed? NOT INDICATED
== END ==
PROVIDERS: PCP Family Medicine; Visit Provider Obstetrics & Gynecology
DX: Z12.4 Encounter for screening for malignant neoplasm of cervix (principal)
CPT/HCPCS: 88175; G0145

== ENCOUNTER → 2022-02-02 | Outpatient (CLI) | payer BC, SELFPAY ==
--- NOTE | 2022-02-02 13:59 | ECHOD_ITS ---
Reason For Study: Aortic aneurysm Procedure This was a 2D Doppler, Color Flow transthoracic echocardiogram. The exam was of adequate technical quality. Exam performed in department. Left Ventricle Normal LV size. Left ventricular systolic function is normal. The estimated ejection fraction is 60 %. No evidence for diastolic dysfunction. No regional wall motion abnormalities noted. Right Ventricle Normal RV size. Normal systolic function. Atria Normal left atrium. Normal right atrium. No doppler evidence for ASD. Mitral Valve There is no mitral annular calcification. Normal mitral valve. Trivial mitral valve insufficiency. Tricuspid Valve Normal tricuspid valve. Trivial tricuspid valve insufficiency. Unable to estimate RV systolic pressure due to insufficient tricuspid regurgitant envelope. Aortic Valve Based upon the 2D echocardiographic images obtained the aortic valve appears demonstrate partial thickening and calcification and fusion of the right/left coronary cusps thereby giving the appearance with respect to opening and closure of that of a bicuspid aortic valve. Mild (1+) aortic valve insufficiency. Pulmonic Valve The pulmonic valve is not well visualized. Trivial pulmonic valve insufficiency. Great Vessels Dilatation at the level of the aortic sinuses: Approximately 4.8 cm. The ascending aorta is mildly dilated. Pericardium/Pleural No pericardial effusion. MMode/2D Measurements & Calculations LVIDd: 4.6 cm IVSd: 1.1 cm LVOT diam: 2.1 cm LVIDs: 2.6 cm LVPWd: 1.0 cm LVOT area: 3.5 cm2 RVDd: 3.5 cm FS: 43.8 % Ao root diam: 3.8 cm LAV(MOD-bp): 37.6 ml LVAd ap4: 28.3 cm2 LAV(MOD-bp) Indexed: 19.7 ml/m2 LVLd ap4: 7.4 cm LAV(MOD-sp2): 33.9 ml EDV(MOD-sp4): 90.1 ml LAV(MOD-sp4): 41.1 ml EDV(sp4-el): 91.4 ml LVAs ap4: 16.5 cm2 LVLs ap4: 6.6 cm ESV(MOD-sp4): 35.0 ml ESV(sp4-el): 35.0 ml EF(MOD-sp4): 61.1 % EF(sp4-el): 61.7 % LVAd ap2: 29.6 cm2 SV(MOD-sp4): 55.0 ml SV(MOD-sp2): 62.0 ml LVLd ap2: 8.0 cm EDV(MOD-sp2): 94.4 ml EDV(sp2-el): 92.7 ml LVAs ap2: 16.1 cm2 LVLs ap2: 6.9 cm ESV(MOD-sp2): 32.4 ml ESV(sp2-el): 32.0 ml EF(MOD-sp2): 65.6 % SV(sp4-el): 56.3 ml LA dimension(2D): 3.9 cm LA A4 area: 15.3 cm2 RA A4 area: 14.1 cm2 Doppler Measurements & Calculations MV E max jhony: 94.5 cm/sec Lat Peak E' Jhony: 12.7 cm/sec Med Peak E' Jhony: 6.7 cm/sec MV A max jhony: 66.4 cm/sec E/E' lat: 7.5 E/E' med: 14.0 MV E/A: 1.4 Ao V2 max: 155.6 cm/sec AI max jhony: 332.3 cm/sec LV V1 max: 114.9 cm/sec Ao max P.7 mmHg AI max P.2 mmHg LV V1 max P.3 mmHg Ao V2 mean: 105.6 cm/sec AI dec slope: 155.2 cm/sec2 LV V1 mean P.8 mmHg Ao mean P.0 mmHg AI P1/2t: 627.0 msec LV V1 mean: 79.6 cm/sec Ao V2 VTI: 33.0 cm LV V1 VTI: 24.9 cm BRENT(I,D): 2.6 cm2 BRENT(V,D): 2.6 cm2 SV(LVOT): 86.7 ml PA V2 max: 95.2 cm/sec ECHO/Echo Complete Interpretation Summary Left ventricular systolic function is normal. The estimated ejection fraction is 60 %. Trivial mitral valve insufficiency. Trivial tricuspid valve insufficiency. Based upon the 2D echocardiographic images obtained the aortic valve appears de monstrate partial thickening and calcification and fusion of the right/left coronary cusps thereb y giving the appearance with respect to opening and closure of that of a bicuspid aortic joseph ve. Mild (1+) aortic valve insufficiency. Trivial pulmonic valve insufficiency. Dilatation at the level of the aortic sinuses: Approximately 4.8 cm. The ascending aorta is mildly dilated. (Approximately 4.2 cm) Unable to estimate RV systolic pressure due to insufficient tricuspid regurgita nt envelope. No evidence for diastolic dysfunction. Ordering Physician: Yumiko Trammell/Karlo Mcallister Referring Physician: Kary Funes Performed By: Leia Mendoza RDCS
== END | disposition home or self-care (01) ==
PROVIDERS: PCP Family Medicine; Visit Provider Physician Assistant Medical
DX: I71.2 Thoracic aortic aneurysm, without rupture (principal); I10 Essential (primary) hypertension; I35.1 Nonrheumatic aortic (valve) insufficiency; E78.5 Hyperlipidemia, unspecified
CPT/HCPCS: 93306

== ENCOUNTER → 2022-02-23 | Outpatient (CLI) | payer BC, SELFPAY ==
--- NOTE | 2022-02-23 07:58 | CT_ITS ---
STUDY: CTA CHEST REASON FOR EXAM: Female, 41 years old. TAA RADIATION DOSAGE (If Supplied By Facility): CTDIvol = ( 14.69 ) mGy, DLP = ( 634.55 ) mGycm TECHNIQUE: The examination was performed with the intravenous administration of IV 100mL Isovue-300. Post-processing of the angiographic images was performed, with multiplanar reformation and 3D reconstruction. Individualized dose optimization techniques were used for this CT. COMPARISON: Comparison is made with prior study dated 07/09/2020 and 01/09/2019. FINDINGS: There is a 1 cm x 0.2 cm linear hypodensity in the anterior aspect of the left lobe of the thyroid. Normal enhancement of the main pulmonary artery and right and left pulmonary arteries. Normal enhancement of the bilateral peripheral pulmonary arteries. There is no demonstrated pulmonary embolism. There is aneurysmal dilatation of the ascending aorta. The transverse diameter of the ascending aorta measures 42.5 mm''s. There is no demonstrated aortic dissection. Normal heart and pericardium. Normal mediastinum. Normal hilar regions. Normal visualized trachea and bronchi. The lungs are well expanded. Normal pulmonary parenchyma. Normal pleura. Normal chest wall structures. Normal osseous structures. Normal visualized upper abdomen. CT/CTA Chest W/WO Contrast IMPRESSION: Mildly dilated root of the ascending thoracic aorta. Electronically Signed: Haresh Yuan MD at 8:51 EDT ,
[2022-02-23 08:15] LABS: CREATININE FINGERSTICK < 0.9 mg/dL (0.55-1.02); EGFR FINGERSTICK > 60.0000 mL/min (>60)
== END | disposition home or self-care (01) ==
LOC: CT 07:55
PROVIDERS: PCP Family Medicine; Referring Provider Physician Assistant Medical; Visit Provider Physician Assistant Medical
DX: I71.2 Thoracic aortic aneurysm, without rupture (principal)
CPT/HCPCS: 71275; Q9967

== ENCOUNTER → 2022-03-04 | Outpatient (CLI) | payer BC, SELFPAY ==
[2022-03-04 09:07] LABS: AST(SGOT) 15 U/L (15-37); Alanine Aminotransfer ALT/SGPT 26 U/L (13-56); Albumin, Serum 4.1 g/dL (3.2-5.0); Alkaline Phosphatase 45 U/L (45-117); Bilirubin, Direct 0.15 mg/dL (0.00-0.30); Cholesterol 130 mg/dL (200); Globulin 3.6 g/dL (2.2-4.2); High Density Lipoprotein 38 mg/dL; Protein, Total 7.7 g/dL (6.4-8.2); Triglycerides 194 mg/dL; Very Low Density Lipoprotein 39 mg/dL (5-40)
--- NOTE | 2022-03-05 08:47 | PFT ---
INTRODUCTION: The patient is a 41-year-old female that presents for pulmonary function studies secondary to a diagnosis of abnormal PFTs. Respiratory therapy reported good patient effort. Bronchodilators were used during testing. INTERPRETATION: Forced expiration spirometry demonstrates no evidence of a large airways obstructive ventilatory defect. There was no significant response to aerosolized bronchodilators. Spirograms are of good quality and plateau normally. Body plethysmography was performed and reveals lung volumes to be within normal limits. Diffusing capacity by single breath CO is mildly reduced at 68% of predicted. IMPRESSION: Isolated mild reduction in diffusing capacity.
== END | disposition home or self-care (01) ==
PROVIDERS: Physician Assistant Medical; PCP Family Medicine; Referring Provider Internal Medicine Critical Care Medicine; Visit Provider Internal Medicine Critical Care Medicine
DX: E78.00 Pure hypercholesterolemia, unspecified (principal); I71.2 Thoracic aortic aneurysm, without rupture; E78.5 Hyperlipidemia, unspecified; I10 Essential (primary) hypertension; I35.1 Nonrheumatic aortic (valve) insufficiency; R94.2 Abnormal results of pulmonary function studies
CPT/HCPCS: 36415; 80061; 80076; 94060; 94726; 94729

== ENCOUNTER → 2022-04-17 | Outpatient (CLI) | payer BC, SELFPAY ==
--- NOTE | 2022-04-17 07:17 | CT_ITS ---
STUDY: CT BRAIN WITH AND WITHOUT CONTRAST REASON FOR EXAM: Female, 42 years old. calcified meningioma over R frontal lobe - RADIATION DOSAGE (If Supplied By Facility): CTDIvol = ( 44.99 ) mGy, DLP = ( 1547.23 ) mGycm TECHNIQUE: Transaxial CT imaging of the brain was performed pre and post contrast administration. The examination was performed with intravenous administration of IV 50mL Isovue-370. Individualized dose optimization techniques were used for this CT. COMPARISON: None. FINDINGS: Normal soft tissue structures. Normal calvarium. There is a densely calcified small right frontal extra axial calcified lesion measuring 11 x 7 mm consistent with small calcified meningioma. Normal white matter tracts of the cerebral hemispheres. Normal basal ganglia and thalami. Normal brainstem. Normal cerebellum. There is no intracranial hemorrhage. There are no findings of an acute ischemic infarction. Normal visualized paranasal sinuses. CT/Brain/Head W/WO Contrast IMPRESSION: No evidence of acute intracranial bleed or ischemia. Incidental small right frontal extra-axial calcified meningioma measuring 11 x 7 mm. Electronically Signed: Magdiel Christensen DO at 12:39 EDT ,
[2022-04-17 07:46] LABS: CREATININE FINGERSTICK < 0.9 mg/dL (0.55-1.02); EGFR FINGERSTICK > 60.0000 mL/min (>60)
== END | disposition home or self-care (01) ==
PROVIDERS: PCP Family Medicine; Referring Provider Nurse Practitioner Family; Visit Provider Nurse Practitioner Family
DX: D32.0 Benign neoplasm of cerebral meninges (principal); G43.009 Migraine without aura, not intractable, without status migrainosus
CPT/HCPCS: 70470; Q9967

== ENCOUNTER → 2022-12-28 | Outpatient (CLI) | payer BC, SELFPAY ==
[2023-01-05 21:06] LABS: HPV APTIMA, High Risk Positive (Negative); HPV Genotype 16, Aptima Negative (Negative); HPV Genotype 18,45 Aptima Negative (Negative)
== END | disposition home or self-care (01) ==
LOC: LABSPEC 17:03
PROVIDERS: PCP Family Medicine; Visit Provider Registered Nurse
DX: Z01.419 Encounter for gynecological examination (general) (routine) without abnormal findings (principal)
CPT/HCPCS: 87624; 88175; G0145

== ENCOUNTER → 2023-06-22 | Outpatient (CLI) | payer BC, SELFPAY ==
--- NOTE | 2023-06-22 07:16 | BI_ITS ---
MAMMOGRAPHY - BILATERAL SCREENING REASON FOR EXAM: Female, 43 years old. Routine annual screening examination. PERTINENT HISTORY: Non-contributory. TECHNIQUE: Digital bilateral breast monisha (3D mammographic acquisition) in the CC and MLO projections. 2-D mediolateral oblique (MLO) and craniocaudad (CC) views of both breasts were obtained. CAD: Full Field Digital Mammography with Computer Added Detection was performed. COMPARISON: Comparison is made with prior examination of May 27, 2022. FINDINGS: Breast Composition: The breasts are almost entirely fatty. There are no dominant masses or suspicious calcifications. No other significant abnormalities are identified. There has been no significant change since the prior study. BI/SCRN MAMM (CAD)W/MONISHA BILAT IMPRESSION: Stable bilateral screening mammogram. Yearly follow-up mammogram recommended. (A) ASSESSMENT CATEGORY: BIRADS Category 1: Negative. A letter regarding these results will be sent to the patient by the facility within 30 days. Approximately 10% of breast cancers are not detected by mammography. A normal mammogram should not delay biopsy of a clinically suspicious abnormality. [id number] Electronically Signed: Haresh Yuan MD at 8:50 EDT ,
== END | disposition home or self-care (01) ==
LOC: OPBI 07:15
PROVIDERS: PCP Family Medicine; Referring Provider Registered Nurse; Visit Provider Registered Nurse
DX: Z12.31 Encounter for screening mammogram for malignant neoplasm of breast (principal)
CPT/HCPCS: 77063; 77067

== ENCOUNTER → 2023-06-29 | Outpatient (CLI) | payer BC, SELFPAY ==
[2023-06-29 10:05] LABS: ALB/GLOB Ratio 0.9 RATIO (0.9-2.4); AST(SGOT) 15 U/L (15-37); Alanine Aminotransfer ALT/SGPT 33 U/L (13-56); Albumin, Serum 3.5 g/dL (3.2-5.0); Alkaline Phosphatase 44 U/L (45-117); Anion Gap 6 (5-15); BUN 12 mg/dL (7-18); BUN/Creat Ratio 16.6 RATIO (10-20); Calcium,Total 8.7 mg/dL (8.5-10.1); Chloride 107 mmol/L (98-107); Cholesterol 135 mg/dL (200); Creatinine, Serum 0.72 mg/dL (0.55-1.02); EST Glomerular Filtration Rate 94 mL/min (>60); Est Glom Filt Rate - Afr Amer 113 mL/min (>60); Globulin 3.7 g/dL (2.2-4.2); Glucose 100 mg/dL (74-106); High Density Lipoprotein 37 mg/dL; Protein, Total 7.2 g/dL (6.4-8.2); Sodium Level 138 mmol/L (136-145); Triglycerides 269 mg/dL; Very Low Density Lipoprotein 54 mg/dL (5-40)
== END | disposition home or self-care (01) ==
LOC: LAB 09:06
PROVIDERS: PCP Family Medicine; Referring Provider Physician Assistant Medical; Visit Provider Physician Assistant Medical
DX: E78.00 Pure hypercholesterolemia, unspecified (principal); I71.20 Thoracic aortic aneurysm, without rupture, unspecified; I10 Essential (primary) hypertension
CPT/HCPCS: 36415; 80053; 80061

== ENCOUNTER → 2023-08-13 | Outpatient (CLI) | payer BC, SELFPAY ==
--- NOTE | 2023-08-13 14:49 | ECHOD_ITS ---
Reason For Study: Thoracic Ao Aneurysm Procedure This was a 2D Doppler, Color Flow transthoracic echocardiogram. Exam performed in department. Left Ventricle Normal size and thickness. The left ventricular ejection fraction is 65 %. Right Ventricle Normal right ventricle. Atria The left and right atria are normal. Mitral Valve Trivial mitral valve insufficiency. Tricuspid Valve Normal tricuspid valve. Aortic Valve Left and right coronary cusps appear fused. Functional bicuspid aortic valve. Mild-Moderate (1-2+) aortic valve insufficiency. Pulmonic Valve Trivial pulmonic valve insufficiency. Great Vessels Moderately dilated aortic root. Pericardium/Pleural No pericardial effusion. MMode/2D Measurements & Calculations LVIDd: 4.1 cm IVSd: 1.1 cm Ao root diam: 4.2 cm LVIDs: 2.3 cm LVPWd: 0.98 cm RVDd: 3.4 cm FS: 42.3 % LAV(MOD-bp): 23.4 ml LVAd ap4: 26.0 cm2 SV(MOD-sp4): 52.6 ml LAV(MOD-bp) Indexed: 12.2 ml/m2 LVLd ap4: 7.3 cm LAV(MOD-sp2): 20.9 ml EDV(MOD-sp4): 77.4 ml LAV(MOD-sp4): 25.7 ml EDV(sp4-el): 79.0 ml LVAs ap4: 13.3 cm2 LVLs ap4: 6.0 cm ESV(MOD-sp4): 24.8 ml ESV(sp4-el): 24.8 ml EF(MOD-sp4): 68.0 % EF(sp4-el): 68.6 % SV(sp4-el): 54.2 ml LA A4 area: 11.2 cm2 LA dimension(2D): 3.6 cm RA A4 area: 7.2 cm2 TAPSE: 2.1 cm Time Measurements MV dec time: 0.24 sec Doppler Measurements & Calculations MV E max jhony: 64.2 cm/sec Lat Peak E' Jhony: 7.9 cm/sec Med Peak E' Jhony: 4.5 cm/sec MV A max jhony: 70.4 cm/sec E/E' lat: 8.2 E/E' med: 14.4 MV E/A: 0.91 Ao V2 max: 158.3 cm/sec AI max jhony: 379.1 cm/sec MV dec slope: 272.6 cm/sec2 Ao max P.0 mmHg AI max P.5 mmHg Ao V2 mean: 106.5 cm/sec Ao mean P.3 mmHg AI dec slope: 241.5 cm/sec2 Ao V2 VTI: 33.3 cm AI P1/2t: 459.7 msec AV (velocity ratio): 0.82 LV V1 max: 118.5 cm/sec PA V2 max: 95.7 cm/sec LV V1 max P.6 mmHg LV V1 mean P.1 mmHg LV V1 mean: 81.6 cm/sec LV V1 VTI: 27.2 cm ECHO/Echo Complete Interpretation Summary The left ventricular ejection fraction is 65 %. Left and right coronary cusps appear fused. Functional bicuspid aortic valve. Moderately dilated aortic root. Ordering Physician: Yumiko Trammell Referring Physician: Kary Funes Performed By: Gladys Neal, LENY, RVT
--- NOTE | 2023-08-13 15:35 | CT_ITS ---
EXAM: CT CHEST WITH INTRAVENOUS CONTRAST CLINICAL INDICATION: TAA -- HAS ECHO FIRST, WILL CALL WHEN READY TECHNIQUE: Helically acquired images were obtained of the chest with intravenous contrast. This CT exam was performed using one or more of the following dose reduction techniques: automated exposure control, adjustment of the mA and/or kV according to patient size, and/or use of iterative reconstruction technique. CONTRAST: IV 100mL Isovue-300 COMPARISON: 02/23/2022 FINDINGS: LUNGS AND PLEURAL SPACES: Unremarkable. No mass. No consolidation or edema. No pleural effusion or thickening. No pneumothorax. HEART: Unremarkable. Heart size is normal. No pericardial effusion. MEDIASTINUM: Unremarkable. No mediastinal or hilar adenopathy. Esophagus is unremarkable. No hiatal hernia. THYROID: Unremarkable. No thyroid lesions. BONES/JOINTS: Unremarkable. No suspicious lytic or blastic abnormality. VASCULATURE: The ascending aorta measures 4.4 cm in AP diameter. This is stable from the reference exam. Thoracic aorta is non-dilated. No thoracic aortic dissection. No obvious central pulmonary embolism although this study was not performed with the pulmonary embolism protocol. CT/Chest WITH Contrast IMPRESSION: No acute findings in the chest. Electronically Signed: Rajendra Caputo MD at 23:32 EST ,
[2023-08-13 15:54] LABS: CREATININE FINGERSTICK < 0.9 mg/dL (0.55-1.02); EGFR FINGERSTICK > 60.0000 mL/min (>60)
== END | disposition home or self-care (01) ==
PROVIDERS: PCP Family Medicine; Referring Provider Physician Assistant Medical; Visit Provider Physician Assistant Medical
DX: I71.20 Thoracic aortic aneurysm, without rupture, unspecified (principal); I10 Essential (primary) hypertension; I35.1 Nonrheumatic aortic (valve) insufficiency; E78.5 Hyperlipidemia, unspecified
CPT/HCPCS: 71260; 93306; Q9967; A4216

== ENCOUNTER → 2024-01-27 | Outpatient (CLI) | payer BC, SELFPAY ==
--- NOTE | 2024-01-27 16:44 | CT_ITS ---
STUDY: CT BRAIN WITH AND WITHOUT CONTRAST REASON FOR EXAM: Female, 43 years old. follow-up meningioma RADIATION DOSAGE (If Supplied By Facility): CTDIvol = ( 47.06 ) mGy, DLP = ( 1710.07 ) mGycm TECHNIQUE: Transaxial CT imaging of the brain was performed pre and post contrast administration. The examination was performed with intravenous administration of IV 50mL Isovue-370. Individualized dose optimization techniques were used for this CT. COMPARISON: 04/17/2022 FINDINGS: Normal soft tissue structures. Normal calvarium. 1 cm oval flat calcification along the inner table of the right parietal bone consistent with a calcified meningioma. No significant mass effect on the subjacent brain parenchyma. Normal size ventricles and extra-axial spaces for the patient''s age. Normal white matter tracts of the cerebral hemispheres. Normal basal ganglia and thalami. Normal brainstem. Normal cerebellum. There is no intracranial hemorrhage. There are no findings of an acute ischemic infarction. Normal visualized paranasal sinuses. CT/Brain/Head W/WO Contrast IMPRESSION: Normal unenhanced and enhanced CT scan of the brain. No change in small calcified right parietal meningioma without significant mass effect. Electronically Signed: Navjot Lindquist MD at 13:59 EDT ,
[2024-01-27 17:12] LABS: CREATININE FINGERSTICK < 1.0 mg/dL (0.55-1.02); EGFR FINGERSTICK > 60.0000 mL/min (>60)
== END | disposition home or self-care (01) ==
PROVIDERS: Referring Provider Psychiatry & Neurology Neurology; Visit Provider Psychiatry & Neurology Neurology
DX: D32.0 Benign neoplasm of cerebral meninges (principal)
CPT/HCPCS: 70470; Q9967

== ENCOUNTER → 2024-04-12 | Outpatient (CLI) | payer OTHER, SELFPAY ==
[2024-04-12 11:56] LABS: T4 Free Direct 0.92 ng/dL (0.76-1.46); Thyroid Stim Hormone (TSH) 1.57 uIU/mL (0.358-3.74)
[2024-04-18 16:10] LABS: HPV APTIMA, High Risk Positive (Negative)
== END | disposition home or self-care (01) ==
PROVIDERS: Referring Provider Nurse Practitioner Family; Visit Provider Nurse Practitioner Family
DX: Z12.4 Encounter for screening for malignant neoplasm of cervix (principal); E66.01 Morbid (severe) obesity due to excess calories; Z68.38 Body mass index [BMI] 38.0-38.9, adult; Z13.29 Encounter for screening for other suspected endocrine disorder
CPT/HCPCS: 36415; 84439; 84443; 87624; 88175; G0145

== ENCOUNTER → 2024-05-29 | Outpatient (CLI) | payer SELFPAY ==
--- NOTE | 2024-05-29 | CER_PTH ---
PATIENT: PETE HUERTA LOC: [facility]#:[id number] AGE/SX: 44/F ROOM: RE05/29/[address]: Dr. Kera Polo DO : 1980 BED: DIS: 05/29/2024 SPEC #: [id number] RECD: 05/29/24 17:10 STATUS: JENNY CRISTIANO #: [id number] RAO: 05/29/24 00:[address]: Kera Polo DEPT: SURGICAL PATHOLOGY RECD BY: Tristan Zendejas Tissues: Uterine cervix, NOS Procedures: Surgery Specimen Level IV HEADER OPERATION: Colposcopy PRE-OP DIAGNOSIS: HPV + TISSUE SUBMITTED: A- 2o'clock, B- ECC MICROSCOPIC DIAGNOSIS A. Cervix at 2o'clock, biopsy: Mild squamous dysplasia, KATE I (LSIL). HPV change present. Squamous metaplasia and chronic inflammation. See comment. B. Endocervix, curettings (cellblock): Scant strips of benign superficial endocervix. Abundant acute inflammatory cells. No evidence of dysplasia. See comment. JEWELS/ 05/31/2024 COMMENT A,B. Immunohistochemistry ([id number]) for surrogate HPV marker (p16) supports the above diagnosis. MICROSCOPIC DESCRIPTION Slides are reviewed. GROSS DESCRIPTION A. Received in fixative is one container labeled with the patient's name and designated 2o'clock cervix. The specimen consists of one irregular fragment of light coleman soft tissue that measures 0.5 x 0.5 x 0.1 cm. The specimen is totally submitted in one cassette. B. Received in fixative is a metallic brush with adherent minute fragments of coleman-red tissue and labeled with the patient's name and and designated per the requisition as ECC BRUSH. The material is dislodged from the brush and submitted for cell block preparation in one cassette. 05/30/2024 TC:3 CPT:25513z4
--- NOTE | 2024-05-29 | IMM_PTH ---
PATIENT: PETE HUERTA LOC: [facility] U#:[id number] AGE/SX: 44/F ROOM: RE05/29/[address]: Dr. Kera Polo DO : 1980 BED: DIS: 05/29/2024 SPEC #: [id number] RECD: 05/31/24 11:05 STATUS: JENNY REYohannes #: [id number] RAO: 05/29/24 00:[address]: Kera Polo DEPT: IMMUNOHISTOCHEMISTRY RECD BY: Meliton Selby Tissues: A - Uterine cervix, NOS B - Uterine cervix, NOS Procedures: p16 (initial) KI-67 (add) P16 (add) KI-67 (initial) PHYSICIAN & INSTITUTION [place] [id number] SPECIMEN INFORMATION: Tissue Source: A- 2 o'clock, B- [facility] Clinical Info: HPV+ Specimen Number: [id number] A, B CPT code: 04773y6,18762h4 METHODOLOGY: Deparaffinized sections of prefer/formalin-fixed tissue or PAP/DQ stained slides are incubated with monoclonal/polyclonal antibodies/oligonucleotide probes. Localization is made via biotin free immunoperoxidase method. Appropriate controls are performed and reacted as expected. Results on target cell population are indicated in the following table: RESULTS: ANTIBODY / CLONE RESULT Block A P16 (E6H4) positive, focal, patchy Ki-67 (30-9) positive, low Block B P16 (E6H4) negative Ki-67 (30-9) positive, low These tests were developed and their performance characteristics determined by [facility]. They may not have been cleared or approved by the U.S. Food and Drug Administration. The FDA has determined that such clearance or approval is not necessary. The above immunohistochemical/dualISH markers are ordered and reviewed by the Pathologist. INTERPRETATION: A. Cervix, 2o'clock, biopsy: Focal HPV change present. B. Endocervical curettings: No evidence of dysplasia. AM/mr 06/01/2024
== END | disposition home or self-care (01) ==
LOC: LABSPEC 17:17
PROVIDERS: Visit Provider Obstetrics & Gynecology
DX: N87.0 Mild cervical dysplasia (principal)
CPT/HCPCS: 88305; 88341; 88342

== ENCOUNTER → 2025-05-24 | Outpatient (CLI) | payer OTHER, SELFPAY ==
[2025-05-30 16:09] LABS: HPV APTIMA, High Risk Positive (Negative)
== END | disposition home or self-care (01) ==
PROVIDERS: Visit Provider Nurse Practitioner Family
DX: Z12.4 Encounter for screening for malignant neoplasm of cervix (principal); R87.610 Atypical squamous cells of undetermined significance on cytologic smear of cervix (ASC-US); R87.810 Cervical high risk human papillomavirus (HPV) DNA test positive
CPT/HCPCS: 87624; 88175; G0145

== ENCOUNTER 2025-07-17 13:10 | Day surgery (SDC) | payer OTHER, SELFPAY ==
--- NOTE | 2025-07-09 13:58 | PAT.ANESEVAL ---
Pre-Assessment Diagnosis/Proposed Procedure Planned Operative Procedure(s): LEEP Anesthesia History Anesthesia History - tutor: Anesthesia History - tutor Hx Hospitalization No 07/09/25 10:19 Any Problems With Anesthesia No 07/09/25 10:19 Cholinesterase deficiency No 07/09/25 10:19 You/Your Family Experience No 07/09/25 10:19 fever (hyperthermia) with Relationship Recent Exposure to Contagious Disease Does patient have nerve No 07/09/25 10:19 stimulator Patient instructed to have device shut off --Does patient have Pacemaker or ICD? When Was Last Pacemaker Check QUESTION #4 FULL TEXT: You/Your Family Experience fever (hyperthermia) with Anesthesia Last Oral Intake Last Oral intake: Last Oral Intake NPO since Meds taken in AM with sips of water? Meds patient instructed to take am of surgery PONV PONV - tutor: PONV - tutor Female Yes 07/09/25 10:19 HX of Motion Sickness No 07/09/25 10:19 HX of N/V After Surgery No 07/09/25 10:19 Non-Smoker Yes 07/09/25 10:19 Duration of Surgery greater No 07/09/25 10:19 than 60 minutes Number of Risk Factors 2 07/09/25 10:19 PONV Score Moderate Risk 07/09/25 10:19 Height & Weight Height & Weight: Anesthesia: Height & Weight Height 5 ft 2 in 06/19/25 08:24 Respiratory Assessment Respiratory Assessment - tutor: Respiratory Tract Infection Hx - tutor Hx Respiratory Tract Infection No 07/09/25 10:19 STOP Sleep Apnea STOP Sleep Apnea - tutor: STOP Sleep Apnea - tutor Hx Hypertension Yes: CONTROLLED ON MED 07/09/25 10:19 Hx Sleep Apnea No 07/09/25 10:19 CPAP BIPAP Do you snore loudly (louder No 07/09/25 10:19 than talking or can be heard Do you often feel tired/ No 07/09/25 10:19 fatigued/ sleepy during daytime? Has anyone observed you stop No 07/09/25 10:19 breathing during sleep? STOP Results Negative 07/09/25 10:19 QUESTION #5 FULL TEXT : Do you snore loudly (louder than talking or can be heard through closed doors)? 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 Specify any problems Hx of Preganancy in last 3 No 07/09/25 10:19 Months Nurse Filling Out Transfusion VCHRISTIN 07/09/25 10:19 & Questions: Date: 07/09/25 07/09/25 10:19 Time: 10:20 07/09/25 10:19 Patient unable to answer at this time (ie. confused, unrespo /Reproduction History /Reproductive History - tutor: /Reproductive Hx- tutor Hx Now No 07/09/25 10:19 Gestational Age (in weeks): EDC: Hx Hx Para Hx Section SAB No 07/09/25 10:19 [facility] Medical History (Updated 07/09/25 @ 10:19 by Elisa Calderón) Wears glasses Migraine headache Non-smoker CPAP (continuous positive airway pressure) dependence Sleep apnea Chronic cough History of echocardiogram Cardiology follow-up encounter History of irregular heartbeat Seasonal allergies Thoracic aortic aneurysm without rupture Essential hypertension Excessive daytime sleepiness Nonrheumatic aortic valve insufficiency Obesity Hyperlipidemia Home Medications ?Medication ?Instructions ?Recorded ?Last Taken ?Type cetirizine 10 mg tablet (Zyrtec) 10 mg PO PRN allergies 04/07/21 Unknown History fluticasone propionate 50 1 spray intranasal PRN ALLERGIES 04/08/22 Unknown History mcg/actuation nasal spray,suspension (Flonase Allergy Relief) hydrochlorothiazide 25 mg tablet 25 mg PO DAILY #90 tabs 05/04/23 Unknown Rx levonorgestrel (Mirena) 1 device intrauterine ONCE 06/29/23 Unknown History fluticasone 250 mcg-salmeterol 50 1 inh inhalation BID 04/12/24 Unknown History mcg/dose blistr powdr for inhalation (Advair Diskus) rimegepant 75 mg disintegrating 75 mg PO DAILY PRN migraine 03/13/25 Unknown Rx tablet (Nurtec ODT) headache #16 tabs rosuvastatin 10 mg tablet 10 mg PO QDAY #90 tabs 06/18/25 Unknown Rx carvedilol 25 mg tablet 25 mg PO BID 06/19/25 Unknown History losartan 50 mg tablet 50 mg PO QDAY 06/19/25 Unknown History albuterol sulfate 90 mcg/actuation 2 puff inhalation Q4H PRN 07/09/25 Unknown History aerosol inhaler shortness of breath or wheezing Allergy/AdvReac Type Severity Reaction Status Date / Time Penicillins Allergy Unknown Rash Verified 07/09/25 10:10 atenolol AdvReac Intermediate hair loss Verified 07/09/25 10:10 Family History Mother Hypertension COPD (chronic obstructive pulmonary disease) Father Hypertension CHF (congestive heart failure) PVD (peripheral vascular disease) Surgical History [place] teeth extracted Social History adopted: No housing: house number of children: 0 current occupational status: employed current occupation: [employer] Smoking Status: Never smoker Electronic Cigarette Use: not used second hand exposure: No alcohol intake: current alcohol intake frequency: holidays/special occasions only details: rarely substance use type: does not use caffeine: Yes Type: coffee Number of servings: 4 keyur/confucianism: Oriental Orthodox seatbelt use: always do you feel safe at home: Yes additional social history: - Augie Audit: Pertinent Findings Pertinent Findings EKG Perinent findings: 12/09/2017. Sinus rhythm within normal limits. 05/29/2025. Normal sinus rhythm 65 bpm. QT greater than or equal to 480 ms. Echo (EF%) pertinent findings: 08/13/2023. EF 65%. Functional bicuspid aortic valve. Moderately dilated aortic root. Cardiology note 04/03/2025. [facility]. MRI images which showed bicuspid valve with mild AI and aneurysmal aorta measuring 4.4 cm. Repeat echocardiogram in 6 months for additional surveillance. Consult pertinent findings: Cardiology 06/29/2023. Nonrheumatic aortic valve insufficiency. Stable. Thoracic aortic aneurysm without rupture. 5 cm x [address] scan 2017. Follow-up CT as needed. Chronic hypertension. Controlled on current medications. Recommendation Anesthesia Recommendation Anesthesia recommendation: OPTIMIZED for anesthesia
[2025-07-17] VITALS (10 sets, daily range): BP systolic 126–177; BP diastolic 83–104; PULSE 64–73; RESP 16–18; TEMP 36.3–36.4; O2SAT 96–100; BMI 43.9
[2025-07-17 13:46] LABS: Hematocrit 42.2 % (37-47); Hemoglobin 14.1 g/dL (12.0-15.0); Mean Corp Hgb Conc 33.4 g/dL (32-36); Mean Corpuscular Volume 91.7 fL (81-99); Mean Platelet Vol. 12.9 fl (6.2-12.0); Platelet Count 279 K/mm3 (150-450); RBC Distribution Width CV 13.2 % (11.6-14.6); RBC Distribution Width SD 45.1 fl (35.1-43.9); Red Blood Count 4.60 M/mm3 (4.2-5.4); White Blood Count 8.1 K/mm3 (4.4-11.0)
[2025-07-17 13:47] LABS: Internal QC Validated? YES +Cl - CLEAR BKGD; Pregnancy, Urine Negative Negative
[2025-07-17 13:48] LABS: Record Kit Lot#,Urine Preg 980607
--- NOTE | 2025-07-17 14:04 | PRE.ANES_ITS ---
Assessment & Plan Anesthesia*
--- NOTE | 2025-07-17 14:04 | PCM.PRE.AN2 ---
ASA Classification* ASA Classification ASA Classification: 2 Assessment & Plan Anesthesia* Anesthesia Assessment Anesthesia Assessment: Discussed sedation and/or anesthesia options, risks, benefits, and alternatives with patient/parents/legal guardian/POA. Questions invited. The patient/parents/legal guardian/POA seems to understand and agrees to proceed with anesthesia plan. Reviewed the physical assessment, medical history, allergy history and patient home medications list prior to surgery/procedure/anesthetic and documented any changes. Performed airway and anesthesia risk assessments. Anesthesia Type Anesthesia Type: General and MAC History Source History Obtained from:: Patient and Chart Anesthesia Focused Assessment* Temperature: 97.3 F Pulse Rate: 71 Blood Pressure: 177/100 Respiratory Rate: 18 Pulse Ox: 100 Oxygen Delivery Method: Room Air Airway Assessment Mouth opens: >3 cm Mallampati Score: II Teeth Condition: Intact Neck Range of motion (ROM): Full ROM Labs Anesthesia Preop lab: CBC WBC, (4.4-11.0) 8.1 K/mm3 Today, 13:35 RBC, (4.2-5.4) 4.60 M/mm3 Today, 13:35 Hgb, (12.0-15.0) 14.1 g/dL Today, 13:35 Hct, (37-47) 42.2 % Today, 13:35 Plt Count, (150-450) 279 K/mm3 Today, 13:35 CHEMISTRY Potassium, (3.5-5.1) 4.0 mmol/L 06/29/23, 09:12 Sodium, (136-145) 138 mmol/L 06/29/23, 09:12 BUN, (7-18) 12 mg/dL 06/29/23, 09:12 Creatinine, (0.55-1.02) 0.72 mg/dL 06/29/23, 09:12 Glucose, (74-106) 100 mg/dL 06/29/23, 09:12 TSH, (0.358-3.74) 1.57 uIU/mL 04/12/24, 11:17 COAG HCG, Quant, (<9 non-preg) < 1 mIU/mL 03/17/18, 16:01 Urine Test Negative Negative Today, 13:25 Pre-Assessment Diagnosis/Proposed Procedure Planned Operative Procedure(s): LEEP Anesthesia History 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 When Was Last Pacemaker Check QUESTION #4 FULL TEXT: You/Your Family Experience fever (hyperthermia) with Anesthesia Last Oral Intake Last Oral intake: Last Oral Intake NPO since 10:00 07/17/25 13:41 Meds taken in AM with sips of Yes 07/17/25 13:41 water? 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 Female Yes 07/09/25 10:19 HX of Motion Sickness No 07/09/25 10:19 HX of N/V After Surgery No 07/09/25 10:19 Non-Smoker Yes 07/09/25 10:19 Duration of Surgery greater No 07/09/25 10:19 than 60 minutes Number of Risk Factors 2 07/09/25 10:19 PONV Score Moderate Risk 07/09/25 10:19 Height & Weight Height & Weight: Anesthesia: Height & Weight Height 5 ft 2 in 07/17/25 13:41 Weight: 108.862 kg 07/17/25 13:41 Body Mass Index (BMI) 43.9 07/17/25 13:41 Respiratory Assessment Respiratory Assessment - tree fruit and nut farming supervisor: Respiratory Tract Infection Hx - tree fruit and nut farming supervisor Hx Respiratory Tract Infection No 07/09/25 10:19 STOP Sleep Apnea STOP Sleep Apnea - tree fruit and nut farming supervisor: STOP Sleep Apnea - tree fruit and nut farming supervisor Hx Hypertension Yes: CONTROLLED ON MED 07/09/25 10:19 Hx Sleep Apnea No 07/09/25 10:19 CPAP BIPAP Do you snore loudly (louder No 07/09/25 10:19 than talking or can be heard Do you often feel tired/ No 07/09/25 10:19 fatigued/ sleepy during daytime? Has anyone observed you stop No 07/09/25 10:19 breathing during sleep? STOP Results Negative 07/09/25 10:19 QUESTION #5 FULL TEXT : Do you snore loudly (louder than talking or can be heard through closed doors)? 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 Specify any problems Hx of Preganancy in last 3 No 07/09/25 10:19 Months Nurse Filling Out Transfusion VCHRISTIN 07/09/25 10:19 & Questions: Date: 07/09/25 07/09/25 10:19 Time: 10:20 07/09/25 10:19 Patient unable to answer at this time (ie. 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: /Reproductive Hx- tree fruit and nut farming supervisor Hx Now No 07/09/25 10:19 Gestational Age (in weeks): EDC: Hx Hx Para Hx Section SAB No 07/09/25 10:19 PFSH Medical History Wears glasses Migraine headache Non-smoker CPAP (continuous positive airway pressure) dependence Sleep apnea Chronic cough History of echocardiogram Cardiology follow-up encounter History of irregular heartbeat Seasonal allergies Thoracic aortic aneurysm without rupture Essential hypertension Excessive daytime sleepiness Nonrheumatic aortic valve insufficiency Obesity Hyperlipidemia Home Medications ?Medication ?Instructions ?Recorded ?Last Taken ?Type cetirizine 10 mg tablet (Zyrtec) 10 mg PO PRN allergies 04/07/21 Unknown History fluticasone propionate 50 1 spray intranasal PRN ALLERGIES 04/08/22 Unknown History mcg/actuation nasal spray,suspension (Flonase Allergy Relief) hydrochlorothiazide 25 mg tablet 25 mg PO DAILY #90 tabs 05/04/23 Unknown Rx levonorgestrel (Mirena) 1 device intrauterine ONCE 06/29/23 Unknown History fluticasone 250 mcg-salmeterol 50 1 inh inhalation BID 04/12/24 07/17/25 History mcg/dose blistr powdr for inhalation (Advair Diskus) rimegepant 75 mg disintegrating 75 mg PO DAILY PRN migraine 03/13/25 Unknown Rx tablet (Nurtec ODT) headache #16 tabs rosuvastatin 10 mg tablet 10 mg PO QDAY #90 tabs 06/18/25 Unknown Rx carvedilol 25 mg tablet 25 mg PO BID 06/19/25 07/17/25 History losartan 50 mg tablet 50 mg PO QDAY 06/19/25 07/17/25 History albuterol sulfate 90 mcg/actuation 2 puff inhalation Q4H PRN 07/09/25 Unknown History aerosol inhaler shortness of breath or wheezing Allergy/AdvReac Type Severity Reaction Status Date / Time Penicillins Allergy Unknown Rash Verified 07/17/25 13:30 atenolol AdvReac Intermediate hair loss Verified 07/17/25 13:30 Family History Mother Hypertension COPD (chronic obstructive pulmonary disease) Father Hypertension CHF (congestive heart failure) PVD (peripheral vascular disease) Surgical History [place] teeth extracted Social History adopted: No housing: house number of children: 0 current occupational status: employed current occupation: [employer] Smoking Status: Never smoker Electronic Cigarette Use: not used second hand exposure: No alcohol intake: current alcohol intake frequency: holidays/special occasions only details: rarely substance use type: does not use caffeine: Yes Type: coffee Number of servings: 4 keyur/cheondoism: Yarsanism seatbelt use: always do you feel safe at home: Yes additional social history: - Augie Review of Systems (Anesthesia) ROS Narrative System reviewed and no additional complaints, except as documented.
--- NOTE | 2025-07-17 14:45 | CONE_PTH ---
PATIENT: PETE HUERTA [place] [facility] [place][id number] AGE/SX: 45/F ROOM: RE07/17/[address]: Dr. Kera Polo DO : 1980 BED: DIS: 07/17/2025 SPEC #: [id number] RECD: 07/17/25 17:32 STATUS: JENNY REYohannes #: [id number] RAO: 07/17/25 14:[address]: Kera Polo DEPT: SURGICAL PATHOLOGY RECD BY: Meliton Selby ENTERED: 07/18/25 10:27 SP TYPE: Leep Cone OT DR: Nancy Primary Care Phys Tissues: A - UTERINE CERVIX LEEP B - UTERINE CERVIX LEEP Procedures: Surgery Specimen Level IV Surgery Specimen Level V HEADER OPERATION: Leep PRE-OP DIAGNOSIS: HGSIL TISSUE SUBMITTED: A- Endocervical curettings, B- Cervical biopsy MICROSCOPIC DIAGNOSIS A. Endocervical curettage/brush: - Scant benign endocervical mucosa. - Negative for dysplasia or malignancy. B. Cervix, LEEP: - Low grade JAMES (mild dysplasia with HPV cytopathic effect, KATE 1) involving the ectocervical surgical margin. MICROSCOPIC DESCRIPTION Slides are reviewed. GROSS DESCRIPTION Received in 2 formalin containers labeled with the patient's name and date of . Designated as: A. Endocervical curettage is a brush with attached blood-tinged mucoid material and flecks of possible tissue. Entirely submitted in 1 cassette. Entirety of the specimen unlikely to survive processing. B. Cervical biopsy are 2 irregular coleman-pink to red and granular portions of apparent cervix, devoid of orientation, collectively measuring 2.9 x 2.0 x 1.1 cm. Each portion has loosely adherent mucoid material. The larger fragment has an apparent os, 0.8 cm. The specimen is inked as follows: Cauterized, apparent ectocervix: BlackLarger portion with apparent endocervix: Green The cervical fragments are radially sectioned revealing fibrotic cut surfaces with a mucoid containing cyst. No definitive lesions are grossly appreciated. The specimen is entirely submitted in 7 cassettes as follows: B1-B6: Cervix, radially sectionB7: Mucoid material OR 07/18/2025 CPT:68462,63144
--- NOTE | 2025-07-17 16:06 | HP.PCM_ITS ---
History and Physical
--- NOTE | 2025-07-17 16:06 | PCM.HP.BLA ---
History and Physical Date of Admission: 07/17/25 Intake Vital Signs 05/24/2515:40 06/19/2508:24 Height 5 ft 2 in 5 ft 2 in Weight: 239 lb 7 oz 237 lb 7 oz BMI 43.7 43.4 BP 162/107 H 137/88 H Intake Visit Reasons: LEEP Chief Complaint: LEEP Second Floor Operator Required: No Is patient in pain?: No Allergies Penicillins Allergy (Unknown, Verified 06/19/25 08:25) Rash atenolol Adverse Reaction (Intermediate, Verified 06/19/25 08:25) hair loss Medications ?Medication ?Instructions ?Recorded ?Confirmed ?Type cetirizine 10 mg tablet (Zyrtec) 10 mg PO DAILY 04/07/21 06/19/25 History fluticasone propionate 50 1 spray intranasal DAILY 04/08/22 06/19/25 History mcg/actuation nasal spray,suspension (Flonase Allergy Relief) hydrochlorothiazide 25 mg tablet 25 mg PO DAILY #90 tabs 05/04/23 06/19/25 Rx levonorgestrel (Mirena) 1 device intrauterine ONCE 06/29/23 06/19/25 History fluticasone 250 mcg-salmeterol 50 1 inh inhalation BID 04/12/24 06/19/25 History mcg/dose blistr powdr for inhalation (Advair Diskus) rimegepant 75 mg disintegrating 75 mg PO DAILY PRN migraine 03/13/25 06/19/25 Rx tablet (Nurtec ODT) headache #16 tabs rosuvastatin 10 mg tablet 10 mg PO QDAY #90 tabs 06/18/25 06/19/25 Rx carvedilol 25 mg tablet 25 mg PO BID 06/19/25 06/19/25 History losartan 50 mg tablet 50 mg PO QDAY 06/19/25 06/19/25 History Post menopausal: No Patient : No : No Control Method: Mirena PFSH PFSH Medical History Seasonal allergies Thoracic aortic aneurysm without rupture Essential hypertension Excessive daytime sleepiness Nonrheumatic aortic valve insufficiency Obesity Hyperlipidemia Surgical History [place] teeth extracted Family History Mother Hypertension COPD (chronic obstructive pulmonary disease) Father Hypertension CHF (congestive heart failure) PVD (peripheral vascular disease) Social History adopted: No housing: house number of children: 0 current occupational status: employed current occupation: [employer] Smoking Status: Never smoker Electronic Cigarette Use: not used second hand exposure: No alcohol intake: current alcohol intake frequency: holidays/special occasions only details: rarely substance use type: does not use caffeine: Yes Type: coffee Number of servings: 4 keyur/taoist: Jainism seatbelt use: always do you feel safe at home: Yes additional social history: - Augie History 0 Elective abortions Hx Para Spontaneous abortions Hx # Term Pregnancies Ectopic pregnancies Hx # Pregnancies Multiple births # of living children HPI LEEP Details: PETE HUERTA is a 45 year old who presents for preop LEEP procedure. She has persistent ASCUS with HPV for several years and more recently HGSIL. She is scheduled on 07/17/25. ROS Const ROS Unobtainable: All systems reviewed & are unremarkable except as noted in H Resp Resp: Reports system reviewed and no additional complaints, except as documented; Denies cough GI GI: Reports as per HPI Psych Psych: Reports system reviewed and no additional complaints, except as documented Exam Const General: cooperative, healthy appearing, comfortable and no acute distress Resp Effort & Inspection: normal respiratory effort Skin General: no rashes or lesions noted Psych Appearance: grossly normal Speech and Movement: speech and movement normal Coding Level of Care Code Off vis,est,level 4 Diagnoses 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 Assessment and Plan Assessment and Plan (1) HGSIL (high grade squamous intraepithelial dysplasia): Status: Acute (2) HPV in female: Status: Acute Comment: retest pap in 2023 Orders: Orders Colposcopy Today B97.7 - Papillomavirus as the cause of diseases classified elsewhere, R87.610 - Atypical squamous cells of undetermined significance on cytologic smear of cervix (ASC-US), R87.612 - Low grade squamous intraepithelial lesion on cytologic smear of cervix (LGSIL), R87.810 - Cervical high risk human papillomavirus (HPV) DNA test positive POC Urine Today N91.2 - Amenorrhea, unspecified, Z01.818 - Encounter for other preprocedural examination Plan After discussing the patient's diagnosis and treatment plan options, patient wishes to proceed with surgical management. I have discussed with the patient the risks, benefits, and alternatives of the procedure which include but are not limited to risks of anesthesia, bleeding, infection, possible damage to bowel, bladder, or surrounding vasculature which could lead to additional surgery to evaluate any complications. Patient agrees to procedure and wishes to proceed. ACOG/uptodate references given for additional information regarding procedure. plan is for LEEP
--- NOTE | 2025-07-17 16:20 | DCINST_ITS ---
Discharge Instructions
--- NOTE | 2025-07-17 16:20 | PCM.DC ---
Discharge Instructions DC O2, CPAP, BIPAP needs Home O2 Discharge instructions: No Dressing / Incision Discharge Activity: Return to Normal Activity and [place] Drive (while taking narcotic pain mediations.) May resume sexual activity in: 4 weeks (Nothing in the vagina for 4 weeks.) Dressing / Incision Call your doctor if you observe: Fever of 101 or Higher and Using more than 1 pad per hour Follow Up Care Please Follow Up With: Kera Polo DO When: Call [phone] for follow-up appointment. Test Results: Test results from this visit will be discussed in further detail at your follow-up appointment, if applicable. Discharge Plan Admission Primary Reason for Your Visit: LEEP Attending Provider: Kera Polo Primary Care Provider: Care PhysicianNancy Primary Instructions Print Language: Romansh Discharge Orders/Prescriptions Prescriptions: No Action Mirena 21 mcg/24 hours (8 yrs) 52 mg intrauterine device 1 device Intrauterine ONCE cetirizine [Zyrtec] 10 mg tablet 10 mg PO PRN fluticasone propionate [Flonase Allergy Relief] 50 mcg/actuation spray,suspension 1 spray intranasal PRN Rx Instructions: administer into each nostril fluticasone propion-salmeterol [Advair Diskus] 250-50 mcg/dose blister with device 1 inh inhalation BID Nurtec ODT 75 mg tablet,disintegrating 75 mg PO DAILY PRN (Reason: migraine headache) Qty: 16 11RF losartan 50 mg tablet 50 mg PO QDAY carvedilol 25 mg tablet 25 mg PO BID albuterol sulfate 90 mcg/actuation HFA aerosol inhaler 2 puff inhalation Q4H PRN (Reason: shortness of breath or wheezing) hydrochlorothiazide 25 mg tablet 25 mg PO DAILY Qty: 90 3RF rosuvastatin 10 mg tablet 10 mg PO QDAY Qty: 90 3RF Referrals / Follow Up: Care Physician,Nancy Primary [Primary Care Provider, Medical] Disposition Disposition (needs filled in before D/C Order can be placed): Home, Self Care
[2025-07-17] MEDS: Lubricating Jelly 60 GM Tube 30 GM (16:21)
[2025-07-17] MEDS: Lidocaine 1% /Epi 1:100 (20ml) 20 ML Vial (16:52)
[2025-07-17] MEDS: FERRIC SUBSULFATE 8 GM SOLN (16:53)
--- NOTE | 2025-07-17 16:54 | OP.PCM_ITS ---
Multi Select Codes
--- NOTE | 2025-07-17 16:54 | PCM.OPRPT ---
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 Surgery/Procedure Performed: loop electrocautery excisional procedure group home counselor: No Type of Anesthesia: MAC and Topical Anesth RN Documented Start/Stop Times: Operation Date: 07/17/25 14:45 Case Time Into Pre-Op 07/17/25 13:15 Out of Pre-Op 07/17/25 16:26 Anesthesia Start 07/17/25 16:27 Into Room 07/17/25 16:27 Procedure Start 07/17/25 16:42 Procedure End 07/17/25 16:53 Procedure Start Time: 16:42 Procedure Stop Time: 16:53 Select all DRAINS/GRAFTS/IMPLANTS that apply: None Estimated Blood Loss: 5cc Specimen collected: Yes Description of specimen(s) removed: cervical leep (biopsy) Description of surgery: Patient was taken to the operating room and placed under MAC anesthesia prepped and draped in normal sterile fashion the dorsal lithotomy position. Lugol's solution was applied to the cervix to find boarders of irregularities. Paracervical block was placed with 1% lidocaine. An endocervical curettage was first performed. Next, using a loop electrode the outer part of the cervix was removed including the squamocolumnar junction. The base of the cervix was cauterized around the borders and the base to obtain hemostasis. Monsel's paste was placed and patient was awoken and taken recovery in stable condition. Surgical Findings: grossly normal appearing cervix. Complications Complications: No Admit VTE Documentation VTE Present on Admission: No VTE Mechan Device Prophylaxis: [facility] [place] [place] Prophylaxis ordered?: No
--- NOTE | 2025-07-17 17:03 | POSTOP.ANE_ITS ---
Anesthesia: Postop Eval I
--- NOTE | 2025-07-17 17:03 | PCM.POST.ANE ---
Anesthesia: Postop Eval I Current Vital Signs Temperature: 97.5 F Pulse Rate: 70 Blood Pressure: 146/104 Respiratory Rate: 16 Pulse Ox: 97 Oxygen Delivery Method: Room Air Assessment Airway patent: Yes Spontaneous unlabored respirations: Yes Mental status: Awake and Calm nausea: No Vomiting: No Anesthesia Complication: No Fluid Hydration Crystalloid volume administer (ml): 300 Total IV fluid infused: 300 Progress Note Anesthesia document: Postop Eval 1 completed: Yes
[2025-07-17] MEDS: Ketorolac 30 MG/ML Syringe IV (17:19)
--- NOTE | 2025-07-17 18:00 | POSTOPAN2_ITS ---
Anesthesia Postop Eval I Sum
--- NOTE | 2025-07-17 18:00 | PCM.POSTANE2 ---
Anesthesia Postop Eval I Sum Postop Eval Completion status Anesthesia document: Postop Eval 1 completed: Yes Anesthesia Postop Eval I Summary Anesthesia Postop Eval I Summary: Anesthesia Postop Eval I: Assessment Summary Airway patent Yes 07/17/25 17:03 RN IV THERAPY.MEDM Spontaneous unlabored Yes 07/17/25 17:03 RN IV THERAPY.MEDM respirations Mental status Awake,Calm 07/17/25 17:03 RN IV THERAPY.MEDM nausea No 07/17/25 17:03 RN IV THERAPY.MEDM Vomiting No 07/17/25 17:03 RN IV THERAPY.MEDM Anesthesia Postop Eval I: Fluid Summary Crystalloid volume administer 300 07/17/25 17:03 RN IV THERAPY.MEDM (ml) Colloids volume administered ( ml) Blood Product volume administered (ml) Total IV fluid infused 300 07/17/25 17:03 RN IV THERAPY.MEDM Anesthesia Postop Eval I: Summary Notes Anesthesia Complication No 07/17/25 17:03 RN IV THERAPY.MEDM Anesthesia Complication Comment: Post-operative progress note Anesthesia: Postop Eval II Evaluation Mental status: Awake and Calm Pain Level: 1 nausea: No Vomiting: No Complications Anesthesia Complication: No
== END 2025-07-17 17:58 | disposition home or self-care (01) ==
LOC: SDC 13:12 → AC 13:16
PROVIDERS: Referring Provider Obstetrics & Gynecology; Visit Provider Obstetrics & Gynecology
PROC: 0UBC7ZZ Excision of Cervix, Via Natural or Artificial Opening (ICD-10-PCS; CPT 57522; principal; 2025-07-17 14:30)
DX: R87.612 Low grade squamous intraepithelial lesion on cytologic smear of cervix (LGSIL) (principal); I10 Essential (primary) hypertension; E78.5 Hyperlipidemia, unspecified; B97.7 Papillomavirus as the cause of diseases classified elsewhere; Z79.899 Other long term (current) drug therapy
CPT/HCPCS: 57461; 00940; 81025; 85027; 86850; 86900; 86901; 88305; 88307; J2405